=== PATIENT | female | born 1935 | race Caucasian/White ===

== ENCOUNTER → 2016-09-19 | Outpatient (CLI) | payer MEDICARE ==
[~2016-09-19] MED LIST: ALLE10TA PO; AMLO5TAB2 PO; ASPI1TAB91 PO; BETAMETHASONE TOPICAL; CALC600T10 PO; CLAR10CA3 PO; CLON.5 PO; MAGN500T4 PO; MAGNESIUM PO; META28.34 PO; MULT1TAB84 PO; NIAC500T18 PO; TOPR50TA PO; VITA500S3 SL
[2016-09-19 10:08] LABS: BICARBONATE 28.6 MEQ/L (21.0-32.0); MAGNESIUM 2.3 MG/DL (1.5-2.5)
== END ==
LOC: PLAB 08:49
PROVIDERS: ATTEND Family Medicine
DX: R25.2 Cramp and spasm (principal)
CPT/HCPCS: 36415; 80048; 83735

== ENCOUNTER → 2016-12-03 | Outpatient (CLI) | payer MEDICARE ==
[~2016-12-03] MED LIST changes: -CLAR10CA3 PO; -MAGNESIUM PO
[2016-12-03 14:08] LABS: AUTOMATED NEUTROPHIL # 5.2 TH/MM3 (1.8-7.7); BASOPHIL % 0.6 % (0.0-2.0); EOSINOPHIL # 0.1 TH/MM3 (0-0.4); EOSINOPHIL % 0.7 % (0.0-4.0); HEMO FLAGS DIFF FINAL; LYMPH % 24.9 % (9.0-44.0); MEAN CELL VOLUME 96.4 FL (80.0-100.0); MEAN CORPUSCULAR HGB CONC 32.1 % (32.0-36.0); MONO % 9.6 % (0.0-8.0); NEUT % 64.2 % (16.0-70.0); PLATELET COUNT 198 TH/MM3 (150-450); RED BLOOD COUNT 4.25 MIL/MM3 (4.00-5.30); WHITE BLOOD COUNT 8.1 TH/MM3 (4.0-11.0)
[2016-12-03 17:26] LABS: ALT (GPT) 32 U/L (10-53); ANION GAP 5 MEQ/L (5-15); AST (GOT) 24 U/L (15-37); BICARBONATE 30.6 MEQ/L (21.0-32.0); BLOOD UREA NITROGEN 10 MG/DL (7-18); CHLORIDE 104 MEQ/L (98-107); GLOMERULAR FILTRATION RATE 87 ML/MIN (>89); GLUCOSE,FASTING 71 MG/DL (74-99); POTASSIUM 3.7 MEQ/L (3.5-5.1); SODIUM (NA) 140 MEQ/L (136-145)
[2016-12-03 17:28] LABS: ALKALINE PHOSPHATASE 68 U/L (45-117); HDL CHOLESTEROL 66.6 MG/DL (40.0-60.0); LDL CHOLESTEROL 111 MG/DL (0-99); TOTAL BILIRUBIN ADULT 0.4 MG/DL (0.2-1.0)
== END ==
LOC: PLAB 09:14
PROVIDERS: ATTEND Family Medicine
DX: I49.9 Cardiac arrhythmia, unspecified (principal); E78.2 Mixed hyperlipidemia; I10 Essential (primary) hypertension
CPT/HCPCS: 36415; 80053; 80061; 85025

== ENCOUNTER → 2016-12-11 | Outpatient (CLI) | payer MEDICARE ==
[2016-12-11 15:54] LABS: AUTOMATED NEUTROPHIL # 9.9 TH/MM3 (1.8-7.7); BASOPHIL % 0.1 % (0.0-2.0); HEMATOCRIT 40.9 % (35.0-46.0); HEMO FLAGS DIFF FINAL; LYMPH % 11.1 % (9.0-44.0); LYMPHOCYTE # 1.4 TH/MM3 (1.0-4.8); MEAN CELL VOLUME 94.6 FL (80.0-100.0); MEAN CORPUSCULAR HGB CONC 32.8 % (32.0-36.0); NEUT % 80.8 % (16.0-70.0); PLATELET COUNT 309 TH/MM3 (150-450); RED BLOOD COUNT 4.32 MIL/MM3 (4.00-5.30); WHITE BLOOD COUNT 12.3 TH/MM3 (4.0-11.0)
[2016-12-11 16:36] LABS: CREATINE KINASE 90 U/L (26-192)
== END ==
LOC: PLAB 13:59
PROVIDERS: ATTEND Family Medicine
DX: I10 Essential (primary) hypertension (principal); I48.91 Unspecified atrial fibrillation
CPT/HCPCS: 36415; 82550; 84443; 84484; 85025

== ENCOUNTER → 2016-12-18 | Outpatient (CLI) | payer MEDICARE ==
[~2016-12-18] MED LIST changes: +APIX5TAB PO; +FURO20TA PO; +K-TA10TA PO; +METO100T9 PO; +NIAC500T5 PO
== END ==
LOC: PLAB 13:46
PROVIDERS: ATTEND Internal Medicine Interventional Cardiology
DX: I48.91 Unspecified atrial fibrillation (principal); Z79.899 Other long term (current) drug therapy
CPT/HCPCS: 82272

== ENCOUNTER 2016-12-26 20:50 | Emergency (ER) | payer MEDICARE ==
[~2016-12-26] VITALS: Ht 157.5 cm; Wt 66.0 kg
[~2016-12-26 20:50] MED LIST changes: -APIX5TAB PO; -FURO20TA PO; -K-TA10TA PO; -METO100T9 PO; -NIAC500T5 PO
[2016-12-26 21:00] VITALS: BP 143/83; PULSE 106; RESP 12; TEMP 97.6; O2SAT 92
--- NOTE | 2016-12-26 21:24 | PD ---
HPI Chief Complaint: Skin Problem Time Seen by Provider: 21:06 Travel History International Travel<30 days: No Contact w/Intl Traveler<30days: No Traveled to known affect area: No History of Present Illness HPI PATIENT HAS NOTICED BLE SWELLING FOR PAST 2 WEEKS, AND ACCIDENTALLY SCRAPED HER LEFT TIB AREA AGAINST FURNITURE. PER HX STATES JET HANDLER IS DR ALVES, PCP IS DR ROBERTS... PT DENIES ANY SOB AT THIS POINT BUT ELABORATED THAT HER LEGS HAVE BEEN INCREASING IN GIRTH AND NOW HAS WEEPING NATURE TO IT, WEEPING IS CLEAR "LIKE SWEAT" AND NO FOUL SMELL. PFSH Past Medical History Arthritis: Yes Blood Disorders: No Anxiety: No Depression: No Heart Rhythm Problems: Yes Cancer: Yes (melanoma left side of face) Cardiovascular Problems: Yes High Cholesterol: Yes Chemotherapy: No Endocrine: No Gastrointestinal Disorders: No Genitourinary: No Herniated Disk: Yes Hypertension: Yes Immune Disorder: No Implanted Vascular Access Dvce: No Musculoskeletal: Yes Neurologic: No Psychiatric: No Reproductive: No Respiratory: Yes Radiation Therapy: No PNEUMOCCOCAL Vaccine (Year): 1 Past Surgical History Gynecologic Surgery: Yes (ECTOPIC , C SECTION) Joint Replacement: Yes (LEFT HIP) Pacemaker: No Other Surgery: Yes Social History Alcohol Use: Yes (couple glasses of wine occ) Tobacco Use: No Substance Use: No Allergies-Medications (Allergen,Severity, Reaction): Coded Allergies: Codeine (Verified Allergy, Severe, NV, 12/09/16) Darvocet-N 100 (Unverified Allergy, Severe, n/v, 12/09/16) Darvon (Unverified Allergy, Severe, n/v, 12/09/16) Duragesic (Unverified Allergy, Severe, n/v, 12/09/16) Demerol (Unverified Adverse Reaction, Severe, VOMITING, 12/09/16) Tramadol (Unverified Adverse Reaction, Severe, VOMITING, 12/09/16) Vicodin (Unverified Adverse Reaction, Severe, VOMITING, 12/09/16) Uncoded Allergies: CODEINE (Adverse Reaction, Severe, VOMITING, 09/30/11) Reported Meds & Prescriptions Reported Meds & Active Scripts Active Reported K-Tab (Potassium Chloride) 10 Meq Tab 10 Meq PO DAILY Furosemide 20 Mg Tab 20 Mg PO DAILY Eliquis (Apixaban) 5 Mg Tab 5 Mg PO BID Niacin 500 Mg Tab 500 Mg PO DAILY Metoprolol Succinate ER 24 HR (Metoprolol Succinate) 100 Mg Tab 100 Mg PO DAILY Allergy Relief (Loratadine) 10 Mg Tab 10 Mg PO BID [Bethamathezone] 1 Applic TOPICAL DIRECTED Metamucil Smooth Texture (Psyllium Hydrophilic Mucilloid) 28.3 % Pow 1 Scoop PO BID PRN 1 rounded TEASPOON in 8 oz of liquid at the first sign of irregularity. Vitamin B-12 (Cyanocobalamin) 500 Mcg Subl 500 Mcg SL DAILY Klonopin (Clonazepam) 0.5 Mg Tab 0.5 Mg PO HS Review of Systems Except as stated in HPI: all other systems reviewed are Neg Cardiovascular: Positive: Palpitations, Irregular Rhythm, Edema Physical Exam Narrative GENERAL: SKIN: Warm and dry. HEAD: Atraumatic. Normocephalic. EYES: Pupils equal and round. No scleral icterus. No injection or drainage. ENT: No nasal bleeding or discharge. Mucous membranes pink and moist. NECK: Trachea midline. No JVD. CARDIOVASCULAR: Regular rate and rhythm. RESPIRATORY: No accessory muscle use. Clear to auscultation. Breath sounds equal bilaterally. GASTROINTESTINAL: Abdomen soft, non-tender, nondistended. Hepatic and splenic margins not palpable. MUSCULOSKELETAL: Extremities without clubbing, cyanosis, 1+ ble EDEMA PITTING WITHOUT ANY CELLULITIC CHANGES.... No obvious deformities. NEUROLOGICAL: Awake and alert. No obvious cranial nerve deficits. Motor grossly within normal limits. Five out of 5 muscle strength in the arms and legs. Normal speech. PSYCHIATRIC: Appropriate mood and affect; insight and judgment normal. Data Data Last Documented VS Vital Signs Date Time Temp Pulse Resp B/P Pulse Ox O2 Delivery O2 Flow Rate FiO2 12/26/16 21:10 83 16 91 Room Air 12/26/16 21:00 97.6 143/83 Orders Complete Blood Count With Diff (12/26/16 21:18) Comprehensive Metabolic Panel (12/26/16 21:18) Ckmb (Isoenzyme) Profile (12/26/16 21:18) Troponin I (12/26/16 21:18) B-Type Natriuretic Peptide (12/26/16 21:18) Prothrombin Time / Inr (Pt) (12/26/16 21:18) Act Partial Throm Time (Ptt) (12/26/16 21:18) Lipase (12/26/16 21:18) Thyroid Stimulating Hormone (12/26/16 21:18) Us Leg Venous Doppler Bilat (12/26/16 ) Furosemide Inj (Lasix Inj) (12/26/16 21:30) CKMB (12/26/16 21:35) CKMB% (12/26/16 21:35) Electrocardiogram (12/26/16 21:45) Labs Laboratory Tests Test 12/26/16 21:35 White Blood Count 9.5 TH/MM3 Red Blood Count 3.91 MIL/MM3 Hemoglobin 12.5 GM/DL Hematocrit 36.0 % Mean Corpuscular Volume 92.2 FL Mean Corpuscular Hemoglobin 32.0 PG Mean Corpuscular Hemoglobin 34.7 % Concent Red Cell Distribution Width 13.4 % Platelet Count 214 TH/MM3 Mean Platelet Volume 7.6 FL Neutrophils (%) (Auto) 71.1 % Lymphocytes (%) (Auto) 17.6 % Monocytes (%) (Auto) 10.3 % Eosinophils (%) (Auto) 0.8 % Basophils (%) (Auto) 0.2 % Neutrophils # (Auto) 6.7 TH/MM3 Lymphocytes # (Auto) 1.7 TH/MM3 Monocytes # (Auto) 1.0 TH/MM3 Eosinophils # (Auto) 0.1 TH/MM3 Basophils # (Auto) 0.0 TH/MM3 CBC Comment DIFF FINAL Differential Comment Prothrombin Time 11.9 SEC Prothromb Time International 1.1 RATIO Ratio Activated Partial 34.2 SEC Thromboplast Time Sodium Level 129 MEQ/L Potassium Level 3.7 MEQ/L Chloride Level 96 MEQ/L Carbon Dioxide Level 25.1 MEQ/L Anion Gap 8 MEQ/L Blood Urea Nitrogen 11 MG/DL Creatinine 0.65 MG/DL Estimat Glomerular Filtration 87 ML/MIN Rate Random Glucose 96 MG/DL Calcium Level 8.5 MG/DL Total Bilirubin 0.5 MG/DL Aspartate Amino Transf 31 U/L (AST/SGOT) Alanine Aminotransferase 55 U/L (ALT/SGPT) Alkaline Phosphatase 75 U/L Total Creatine Kinase 106 U/L Creatine Kinase MB 3.0 NG/ML Troponin I LESS THAN 0.02 NG/ML B-Type Natriuretic Peptide 441 PG/ML Total Protein 6.9 GM/DL Albumin 3.5 GM/DL Lipase 136 U/L Thyroid Stimulating Hormone 1.270 uIU/ML 3rd Gen [facility] Medical Decision Making Medical Screen Exam Complete: Yes Emergency Medical Condition: Yes Medical Record Reviewed: Yes Interpretation(s) AFIB WITH MILD RVR 120'S, NO STEMI PATTERN, Differential Diagnosis LIVER V RENAL FAILURE V CHF V DVT V PERIPHERAL EDEMA Narrative Course PATIENT VSS, [place] ON BOARD AND IT TURNS OUT PATIENT WAS JUST STARTED ON LASIX, PT TOOK FIRST PILL THIS AM BUT DIDN'T RECALL. PT DIURESED WELL AFTER LASIX IV. PT RESPIRATORY STATUS IS STABLE, NO TACHYPNEA, NL PULSE OX, AND NO E/ O RESP DISTRESS AT THIS TIME. Diagnosis Primary Impression: PERIPHERAL EDEMA BILATERAL Disposition: 01 DISCHARGE HOME Condition: Stable Austin Moreno MD Dec 26, 2016 21:24
[2016-12-26] MEDS ORDERED: FUROSEMIDE 20 MG/2 ML VIAL IV PUSH ONE ×2 (21:30→23:00)
[2016-12-26 21:53] LABS: AUTOMATED NEUTROPHIL # 6.7 TH/MM3 (1.8-7.7); BASOPHIL % 0.2 % (0.0-2.0); EOSINOPHIL # 0.1 TH/MM3 (0-0.4); EOSINOPHIL % 0.8 % (0.0-4.0); HEMO FLAGS DIFF FINAL; LYMPH % 17.6 % (9.0-44.0); LYMPHOCYTE # 1.7 TH/MM3 (1.0-4.8); MEAN CELL VOLUME 92.2 FL (80.0-100.0); MEAN CORPUSCULAR HGB CONC 34.7 % (32.0-36.0); MONO % 10.3 % (0.0-8.0); NEUT % 71.1 % (16.0-70.0); PLATELET COUNT 214 TH/MM3 (150-450); RED BLOOD COUNT 3.91 MIL/MM3 (4.00-5.30); RED CELL DISTRIBUTION WIDTH 13.4 % (11.6-17.2); WHITE BLOOD COUNT 9.5 TH/MM3 (4.0-11.0)
[2016-12-26 22:00] LABS: CHLORIDE 96 MEQ/L (98-107); POTASSIUM 3.7 MEQ/L (3.5-5.1); SODIUM (NA) 129 MEQ/L (136-145)
[2016-12-26 22:04] LABS: ANION GAP 8 MEQ/L (5-15); BICARBONATE 25.1 MEQ/L (21.0-32.0)
[2016-12-26 22:05] LABS: BLOOD UREA NITROGEN 11 MG/DL (7-18)
[2016-12-26 22:07] LABS: ALT (GPT) 55 U/L (10-53); AST (GOT) 31 U/L (15-37); GLOMERULAR FILTRATION RATE 87 ML/MIN (>89)
[2016-12-26 22:09] LABS: TOTAL BILIRUBIN ADULT 0.5 MG/DL (0.2-1.0)
[2016-12-26 22:10] VITALS: BP 141/83; PULSE 83; RESP 12; O2SAT 91
[2016-12-26 22:10] LABS: ALKALINE PHOSPHATASE 75 U/L (45-117); CREATINE KINASE 106 U/L (26-192)
[2016-12-26 22:20] LABS: APTT (PATIENT) 34.2 SEC (24.3-30.1); INTERNATIONAL NORMALIZED RATIO 1.1 RATIO; PROTHROMBIN TIME - PATIENT 11.9 SEC (9.8-11.6)
--- NOTE | 2016-12-26 22:34 | RADRPT ---
EXAM DATE/TIME: 12/26/2016 22:09 [place] COMPARISON: No previous studies available for comparison. INDICATIONS : Bilateral leg swelling. MEDICAL HISTORY : Congestive heart failure. Hypercholesterolemia. Hypertension. A-fib. SURGICAL HISTORY : section. Left hip replacement. ENCOUNTER: Initial ACUITY: 3 days PAIN SCORE: 3/10 LOCATION: Bilateral legs. TECHNIQUE: Venous ultrasound of the left and right leg was performed from the inguinal ligament to the proximal calf. Real-time, color Doppler and spectral tracing, compression and augmentation techniques were us ed. FINDINGS: RIGHT LEG: There is normal compressibility of the deep venous system from the inguinal region to the proximal ca lf. No echogenic clot is seen in the lumen of the common femoral, femoral, popliteal, and posterior tibial veins. There is a normal response of the venous system to proximal and distal augmentation an d respiration. LEFT LEG: There is normal compressibility of the deep venous system from the inguinal region to the proximal ca lf. No echogenic clot is seen in the lumen of the common femoral, femoral, popliteal, and posterior tibial veins. There is a normal response of the venous system to proximal and distal augmentation an d respiration. CONCLUSION: Negative for deep venous thrombosis. . Cale Castrejon MD FACR on December 26, 2016 at 22:31 Board Certified Radiologist. This report was verified electronically.
[2016-12-26] MEDS ORDERED: FURO20TA PO (22:42)
[2016-12-26] MEDS ORDERED: NIAC500T5 PO (22:42)
[2016-12-26] MEDS ORDERED: METO100T9 PO (22:42)
[2016-12-26] MEDS ORDERED: APIX5TAB PO (22:42)
[2016-12-26] MEDS ORDERED: K-TA10TA PO (22:42)
[2016-12-26 23:15] VITALS: BP 133/77; PULSE 80; RESP 12; O2SAT 93
--- NOTE | 2016-12-27 16:11 | EKG ---
Date Performed: 12/26/2016 Time Performed: 21:45:23 PTAGE: 81 years EKG: ATRIAL FIBRILLATION WITH RAPID VENTRICULAR RESPONSE ABNORMAL RHYTHM ECG PREVIOUS TRACING : 03/07/2015 16.19 Compared to the previous tracing, previously Sinus rhythm DOCTOR: Elian Gomez Interpretating Date/Time 12/27/2016 16:10:00
== END 2016-12-26 23:48 | disposition home or self-care (01) ==
LOC: PHED 20:50
DX: R60.0 Localized edema (principal); Z79.01 Long term (current) use of anticoagulants; Z85.820 Personal history of malignant melanoma of skin; E78.00 Pure hypercholesterolemia, unspecified; I10 Essential (primary) hypertension; I48.91 Unspecified atrial fibrillation
CPT/HCPCS: 80053; 82550; 82552; 83690; 83880; 84443; 84484; 85025; 85610; 85730; 93005; 93970; 96374; 96376; 99285; J1940

== ENCOUNTER → 2017-05-05 | Outpatient (CLI) | payer MEDICARE ==
[~2017-05-05] MED LIST changes: -ALLE10TA PO; -AMLO5TAB2 PO; +APIX5TAB PO; -ASPI1TAB91 PO; -CALC600T10 PO; +FURO20TA PO; +K-TA10TA PO; +LORA-650 PO; -MAGN500T4 PO; +METO1TAB43 PO; -MULT1TAB84 PO; -NIAC500T18 PO; +NIAC500T5 PO; -TOPR50TA PO
[2017-05-05 13:12] LABS: BASOPHIL % 0.5 % (0.0-2.0); EOSINOPHIL # 0.1 TH/MM3 (0-0.4); EOSINOPHIL % 0.8 % (0.0-4.0); HEMATOCRIT 38.5 % (35.0-46.0); HEMO FLAGS DIFF FINAL; LYMPH % 24.5 % (9.0-44.0); LYMPHOCYTE # 1.5 TH/MM3 (1.0-4.8); MEAN CELL VOLUME 92.9 FL (80.0-100.0); MEAN CORPUSCULAR HEMOGLOBIN 30.6 PG (27.0-34.0); MEAN CORPUSCULAR HGB CONC 32.9 % (32.0-36.0); MONO % 10.5 % (0.0-8.0); NEUT % 63.7 % (16.0-70.0); PLATELET COUNT 219 TH/MM3 (150-450); RED BLOOD COUNT 4.15 MIL/MM3 (4.00-5.30); RED CELL DISTRIBUTION WIDTH 14.3 % (11.6-17.2); WHITE BLOOD COUNT 6.3 TH/MM3 (4.0-11.0)
[2017-05-05 13:37] LABS: BICARBONATE 29.4 MEQ/L (21.0-32.0); POTASSIUM 3.6 MEQ/L (3.5-5.1)
== END ==
LOC: PLAB 09:10
PROVIDERS: ATTEND Internal Medicine Interventional Cardiology
DX: I48.91 Unspecified atrial fibrillation (principal); I11.9 Hypertensive heart disease without heart failure; Z79.01 Long term (current) use of anticoagulants
CPT/HCPCS: 36415; 80048; 85025

== ENCOUNTER 2017-07-01 13:59 | Day surgery (SDC) | payer MEDICARE ==
[~2017-07-01] VITALS: Ht 157.5 cm; Wt 58.7 kg
[2017-07-01] MEDS ORDERED: LACTATED RINGER'S 1000 ML IV PRN (14:30)
[2017-07-01] MEDS ORDERED: CHLORHEXIDINE GLUCONATE 2 % 1 PACK (2 CLOTHS) TOPICAL PRN (14:30)
[2017-07-01] MEDS ORDERED: METOPROLOL TARTRATE 25 MG TAB PO PRN (14:30)
[2017-07-01] MEDS ORDERED: SODIUM CHLORID 0.9% 500 ML IV PRN (14:30)
[2017-07-01] MEDS ORDERED: POVIDONE IODINE 5% (ANTISEPSIS KIT) 4 APPLICATIONS EACH NARE PRN (14:30)
[2017-07-01] MEDS ORDERED: LORazepam 1 MG TAB SL SCH (14:30)
[2017-07-01 14:45] VITALS: BP 162/98; PULSE 133; RESP 18; TEMP 98.1; O2SAT 95
[2017-07-01] MEDS ORDERED: AMIO200T PO (14:58)
[2017-07-01] MEDS ORDERED: XOPEAER4 INH (14:58)
[2017-07-01] MEDS ORDERED: BETA0.1C TOPICAL (14:58)
[2017-07-01] MEDS ORDERED: CART120C PO (14:58)
[2017-07-01] MEDS ORDERED: CLON.5 PO (14:58)
[2017-07-01] MEDS ORDERED: SODIUM CHLORID 0.9% 500 ML INJ 500 ML IV SCH (15:00)
[2017-07-01 15:18] LABS: AUTOMATED NEUTROPHIL # 4.1 TH/MM3 (1.8-7.7); BASOPHIL % 0.5 % (0.0-2.0); EOSINOPHIL # 0.1 TH/MM3 (0-0.4); HEMATOCRIT 39.8 % (35.0-46.0); HEMOGLOBIN 13.4 GM/DL (11.6-15.3); LYMPH % 29.6 % (9.0-44.0); LYMPHOCYTE # 2.1 TH/MM3 (1.0-4.8); MEAN CELL VOLUME 92.3 FL (80.0-100.0); MEAN CORPUSCULAR HEMOGLOBIN 31.1 PG (27.0-34.0); MEAN CORPUSCULAR HGB CONC 33.7 % (32.0-36.0); MEAN PLATELET VOLUME 7.7 FL (7.0-11.0); MONO % 9.8 % (0.0-8.0); MONOCYTE # 0.7 TH/MM3 (0-0.9); NEUT % 59.1 % (16.0-70.0); PLATELET COUNT 301 TH/MM3 (150-450); RED BLOOD COUNT 4.32 MIL/MM3 (4.00-5.30)
[2017-07-01 15:31] LABS: CALCIUM 9.2 MG/DL (8.5-10.1); CREATININE 0.77 MG/DL (0.50-1.00)
[2017-07-01 15:34] LABS: INTERNATIONAL NORMALIZED RATIO 1.1 RATIO; PROTHROMBIN TIME - PATIENT 10.9 SEC (9.8-11.6)
[2017-07-01] MEDS ORDERED: LEVOFLOXACIN 500 MG PREMIX INJ 100 ML IV ONE (16:00)
[2017-07-01] MEDS ORDERED: HEPARIN-NS/PF INJ 2,000 ML ONE (16:07)
[2017-07-01] MEDS ORDERED: HEPARIN-NS/PF INJ 500 ML ONE (16:59)
[2017-07-01] MEDS ORDERED: HEPARIN SODIUM - IV 10,000 UNITS/10 ML VIAL ONE (16:59)
[2017-07-01] MEDS ORDERED: PROTAMINE SULFATE 50 MG/5 ML VIAL ONE (16:59)
[2017-07-01] MEDS ORDERED: ISOPROTERENOL HCL 1 MG/5 ML AMP ONE (17:00)
[2017-07-01] MEDS ORDERED: HEPARIN-D5W 25,000 U/250 ML 250 ML ONE (17:07)
[2017-07-01] MEDS ORDERED: SUGAMMADEX SODIUM 200 MG/2 ML VIAL IV PUSH ONE (18:30)
[2017-07-01] MEDS ORDERED: SODIUM CHLOR 0.9% 250 ML INJ 250 ML IV PRN (18:45)
[2017-07-01] MEDS ORDERED: ATROPINE SULFATE 1 MG/ML VIAL IV PUSH PRN (18:45)
[2017-07-01] MEDS ORDERED: LORazepam 2 MG/ML VIAL IV PUSH PRN (18:45)
[2017-07-01] MEDS ORDERED: BACITRACIN OINT 0.9 GM PKT TOP ONE (18:45)
[2017-07-01] MEDS ORDERED: oxyCODONE/ACETAMINOPHEN 5 MG/325 MG TAB PO PRN ×2 (18:45)
[2017-07-01] MEDS ORDERED: ONDANSETRON HCL 4 MG/2 ML VIAL IV PUSH PRN (18:45)
[2017-07-01] MEDS ORDERED: LIDOCAINE HCL 1% 50 ML VIAL INFIL PRN (18:45)
[2017-07-01] MEDS ORDERED: FUROSEMIDE 40 MG/4 ML VIAL ONE (19:02)
--- NOTE | 2017-07-01 19:25 | CATHPROC ---
[facility] HIS Report Study Information Study Number Admission Scheduled Start Study Start [id number] Jul 01 2017 1:59PM 07/01/2017 Jul 01 2017 3:29PM [place] [facility] Electrophysiology Study Admit Source Facility Department Other [facility] - Waiter/Waitress Economy Class Physician and Clinical Staff Initial Yung Bullock Instructional Support Specialist Sridhar Luna,RT(R) Instructional Support Specialist Terri Ramirez RCIS TECH2 Other Anesthesia, SLD INCLUSION TEACHER Recorder Leticia De Los Santos,CARMELA Recorder Lina Valdez,CARMELA Scrub Martita Burns,ACCOUNTS EXECUTIVE TECH2 Procedures Performed Procedure Location (Site) Vessel Name Ablation Procedure Cardioversion ICE CATHETER INSERT RA Atruim RF Ablation LT. ATRIUM LT. ATRIUM Equipment Time Comfort Advisor Description Size Mfg Part Number Used/Scraped NEEDLE, TRANSSEPTAL NRG 98 [id number] 16:09 ENTERPRISEOluKai Browsarity Used C1 *[id number] [employer]/ EP [id number] 16:09 KIT, TRANSDUCER / AFIB Used PACER *[id number] CATHETER, TACTICATH ABLAT BUNDLE 16:09 BUNDLE-[employer] Used 65 BUNDLE *[id number] BUNDLE [id number] CATHETER, FR7 OPTIMA SPIRAL 16:09 BUNDLE-[employer] FR7 *[id number]- Used BUNDLE BUNDLE [id number] 16:09 BUND[employer] CATHETER, JSN, QUAD BUNDLE FR 5 *[id number]- Used BUNDLE [id number] 16:09 BUND[employer] CATHETER, JSN, QUAD BUNDLE FR 5 *[id number]- Used BUNDLE [id number] SET, COOL POINT TUBING 16:09 BUNDLE-[employer] *[id number]- Used BUNDLE BUNDLE SHEATH, FR8.5 STEERABLE SM 16:09 BUNDLE-[employer] 71CM [id number] Used 71CM BUNDLE COVER, TRANSDUCER CABLE 612-113 16:09 [employer] Used ACUNAV *[id number] 16:09 CORDIS/PACER SHEATH, FR10 BRETT 11CM FR 10 Used *[id number] 16:09 CORDIS/PACER SHEATH, FR9 BRETT 11CM FR 9 [id number] Used [id number] 16:09 [employer] PACK, CCL CUSTOM * Used *[id number] 16:09 MEDLINE PACER HULL, LIMB * 2530 *[id number] Used [id number] 16:09 [facility] MEDICAL SHEATH, FR4.5 PRELUDE 11CM FR 4.5 Used [id number] 16:09 NAMIC TUBING, HIGH PRESSURE 48" 48" Used *[id number] 16:09 NAMIC TUBING, HIGH PRESSURE 48" 48" Used *[id number] 16:09 [facility] BLANKET,WARM AIR CCL * Used *[id number] 16:09 [employer] MEDICAL ELECTRODE KIT, YASSINE X SURFACE * Used *[id number] 16:09 [employer] MEDICAL SHEATH, EPS, FR6 FAST CATH FR 6 Used *[id number] 16:09 [employer] MEDICAL SHEATH, EPS, FR7 FAST CATH FR 7 [id number] Used [id number] 16:09 [employer] MEDICAL SHEATH, EPS, FR8 FAST CATH FR 8 Used *[id number] CATHETER, ACUNAV FR10 ICE [id number] 17:28 VALDEMAR FR 10 Used (VALDEMAR) *[id number] [facility] PAD, ELECTROSURGICAL 16:09 * [id number] *[id number] Used SURGICAL GROUNDING (BLUE) History: Allergies Allergy Reaction CODEINE VOMITING Darvocet-N 100 n/v Darvon n/v Demerol VOMITING Duragesic n/v tramadol VOMITING Vicodin VOMITING hydrocodone VOMITING propoxyphene n/v acetaminophen VOMITING fentanyl n/v meperidine VOMITING carisoprodol Nausea/Vomiting Labs Hgb (g/dl) Hct (%) RBC (MIL/MM3) WBC (l/cumm) Platelets (thousands) 11.60-17.00 35.00-51.00 4.00-5.90 4.00-11.00 150.00-450.00 13.0 39 4.3 7 301 Glucose (mg/dl) BUN (mg/dl) Creatinine (mg/dl) BUN:Creatinine (1:x) 74.00-106.00 7.00-18.00 0.50-1.30 10.00-20.00 88 11 0.7 15.7 Na (meq/l) K (meq/l) 136.00-145.00 3.50-5.10 139 3.6 INR (PTT:PT) 0.90-1.10 1.1 Medication Medication Total Dose (Bolus/Oral) Medication Total Dosage/Unit 1% XYLOCAINE 40 mL HEPARIN 47375 units PROTAMINE 40 mg Medications (Bolus/Oral) Medication Time Given Dosage/Unit Administered By Reason 1% XYLOCAINE 07/01/2017 5:17:00 PM 20 mL Yung Nichole 20 mL 1% XYLOCAINE given in lab by Yung Nichole in Left Groin via Subcutaneous. 1% XYLOCAINE 07/01/2017 5:21:42 PM 20 mL Yung Nichole 20 mL 1% XYLOCAINE given in lab by Yung Nichole in Right Groin via Subcutaneous. HEPARIN 07/01/2017 5:30:01 PM 22293 units Anesthesia, SLD INCLUSION TEACHER As per physicians v erbal order 42045 units HEPARIN given in lab by Anesthesia, SLD INCLUSION TEACHER via Peripheral IV. Ordered by Yung Nichole. Mercedes son: As per physicians verbal order. PROTAMINE 07/01/2017 6:35:39 PM 40 mg Anesthesia, SLD INCLUSION TEACHER As per physicians vidhya bal order 40 mg PROTAMINE given in lab by Anesthesia, SLD INCLUSION TEACHER via Peripheral IV. Ordered by Yung Nichole. Reason: As per physicians verbal order. Medication (Drip) Medication Time Given Dosage/Unit Concentration/Unit Diluent (ml) Solution HEPARIN DRIP 07/01/2017 5:44:30 PM 1000 units/hr 72935 units 250 NaCl .9 1000 units/hr HEPARIN DRIP given in lab by Anesthesia, SLD INCLUSION TEACHER via Peripheral IV. Pump/Drip Flow = 10 ml /hr using NaCl .9 [place] [address] units in 250 ml. Ordered by Yung Nichole. Initial Case Assessment Cardiovascular HR Rhythm NIBP Chest Pain 125 af 187/94 0 Edema Present Skin color Skin None Normal Warm Circulatory - Right Pulses Dorsalis Pedis 2 Scale (0,1,2,3,4,d) Circulatory - Left Pulses Dorsalis Pedis 1 Scale (0,1,2,3,4,d) Circulatory - Lower Extremities Color Lower Right Color Lower Left Normal Normal Neurological State Oriented to time-place- Alert Moves all extremities person Respiration - General Respiration Rate SpO2 (%) (B/min) 20 97 Final Case Assessment Cardiovascular HR NIBP 76 114/59 Edema Present Skin color Skin None Normal Warm Dry Neurological State Lethargic Respiration - General SpO2 (%) O2 (lpm) 99 4 Chronological Log Time Study Chronological Log 16:04:06 Patient arrived via Bed. 16:04:06 Patient Name, D.O.B, / Armband Verified By R.N. 16:04:07 Consent signed by the physician and the patient and verified by the Waiter/Waitress Economy Class staff. 16:04:08 Pre-op and post- op instructions given; patient acknowledges understanding of instructions. 16:04:11 Verbal Stimulation=2 Physical Stimulation=2 Airway=2 Respiration=2 TOTAL=8. (0=absent, 1=li mited, 2=present) 16:09:42 Patient has been NPO for More than 6Hrs. 16:09:54 Skin Breakdown- right hand knuckle with scab. 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 16:10:07 Patient Warmer Placed on the Table. 16:10:09 Disposable Defibrillator Pads Placed On Patient. 16:10:10 Lazaro Prominences Protected 16:10:11 A # 20 IV was noted in the Antecubital (left). Grade = 0 0.9ns kvo 16:10:21 A # 20 IV was noted in the Antecubital (right). Grade = 0 0.9ns kvo 16:10:31 History and physical on the chart. Assessment: Initial Case, JX=359 BPM, Rhythm=af, JQLK=857/94 mmhg, Chest Pain=0, Edema=None, Co leonard=Normal, Skin = Warm Right Pulses: Landon Ped=2 Left Pulses: Landon Ped=1 16:26:05 Lower Right Extremities: Color=Normal Lower Left Extremities: Color=Normal Neurological: State=Alert, Ox3, GEORGE Respiration: Resp=20 B/min, SpO2=97 % 16:26:07 Table restraints applied according to hospital policy 16:27:34 Bilateral groins prepped with 2% chlorhexidine, and draped after a 3 minute waiting time. 16:32:28 Reference ECG taken 16:40:50 Anesthesia at bedside. Assumes care of patient. Dina 16:51:35 Anesthesilogist present for intubation. 16:55:03 MD paged 17:07:44 MD arrived. Time Out. Correct patient, procedure, procedure equipment, site and side verified with physicia n present. Time 17:12:00 concurred by MD, individual staff and SLD INCLUSION TEACHER. Time Out #2 - Consents verified, patient in correct position, all results are labled and displa yed, safety precautions 17:12:15 taken, antibiotics administered. Time out concurred by MD, individual staff and SLD INCLUSION TEACHER in procedu re 17:12:30 Case Start 17:12:32 German in progress. 17:15:12 German complete 17:17:00 20 mL 1% XYLOCAINE given in lab by Yung Nichole in Left Groin via Subcutaneous. 17:18:07 Vascular access was obtained in the Fem Vein (left). 17:18:09 Vascular access was obtained in the Fem Vein (left). 17:18:14 Vascular access was obtained in the Fem Vein (left). 17:18:27 Vascular access was obtained in the Fem Art (left). A SHEATH, FR4.5 PRELUDE 11CM FR 4.5 was advanced into the Fem Art (left) using the Modified Fatou zuleyma technique. 17:18:38 0.9ns pressure bag connected. 17:19:31 A SHEATH, EPS, FR6 FAST CATH FR 6 was advanced into the Fem Vein (left) using the Modified Seldinger technique. 17:19:45 A SHEATH, EPS, FR7 FAST CATH FR 7 was advanced into the Fem Vein (left) using the Modified Seldinger technique. 17:19:53 A SHEATH, FR10 BRETT 11CM FR 10 was advanced into the Fem Vein (left) using the Modified S eldinger technique. 17:21:42 20 mL 1% XYLOCAINE given in lab by Yung Nichole in Right Groin via Subcutaneous. 17:22:02 Vascular access was obtained in the Fem Vein (right). 17:22:07 A SHEATH, EPS, FR8 FAST CATH FR 8 was advanced into the Fem Vein (right) using the Modified Seldinger technique. A CATHETER, JSN, QUAD BUNDLE FR 5 was advanced vis Fem Vein (left) and placed in the CS. Placem ent was visually 17:23:27 confirmed under fluoroscopy. 17:24:29 Beginning of case Body Temp 36.3. A CATHETER, JSN, QUAD BUNDLE FR 5 was advanced vis Fem Vein (left) and placed in the HIS. Place ment was 17:25:39 visually confirmed under fluoroscopy. 17:27:49 CATHETER, ACUNAV FR10 ICE (VALDEMAR) FR 10 Was Postioned. 50902 units HEPARIN given in lab by Anesthesia, SLD INCLUSION TEACHER via Peripheral IV. Ordered by Junie Nichole Reason: As per 17:30:01 physicians verbal order. A SHEATH, FR8.5 STEERABLE SM 71CM BUNDLE 71CM was exchanged in the Fem Vein (right). This was n ecessary in 17:31:00 order for catheter support. 17:31:11 [place] in 17:32:23 A eps was advanced to the right atrium and passed through the septal wall to the left atriu m. 17:32:34 [place] out A CATHETER, FR7 OPTIMA SPIRAL BUNDLE FR7 was advanced vis Fem Vein (right) and placed in the LA . Placement 17:33:25 was visually confirmed under fluoroscopy. Mapping in progress. 17:36:02 Activated Clotting Time Drawn 17:40:03 Ablation complete. Catheter was removed A CATHETER, TACTICATH ABLAT 65 BUNDLE was advanced vis Fem Vein (right) and placed in the LA. P lacement was 17:40:16 visually confirmed under fluoroscopy. 17:44:19 ACT (Normal Range 90-180) = 353 1000 units/hr HEPARIN DRIP given in lab by Anesthesia, SLD INCLUSION TEACHER via Peripheral IV. Pump/Drip Flow = 10 ml/hr using NaCl 17:44:30 .9 [place] [address] units in 250 ml. Ordered by Yung Nichole. 17:46:44 RF Ablation of the LT. ATRIUM with a CATHETER, TACTICATH ABLAT 65 BUNDLE. 18:04:32 Activated Clotting Time Drawn 18:11:00 ACT (Normal Range 90-180) = 389 18:20:27 Ablation stopped. 18:20:32 ECG rhythm of AF noted. Patient cardioverted at 200 joules. Success synch 18:21:00 Monitor SR. 18:32:01 All Cathetera removed. A SHEATH, FR9 BRETT 11CM FR 9 was exchanged in the Fem Vein (right). This was necessary in ord er to minimize 18:33:00 site leakage. 18:33:56 Heparin off. 40 mg PROTAMINE given in lab by Anesthesia, SLD INCLUSION TEACHER via Peripheral IV. Ordered by Yung Nichole. R rory: As per 18:35:39 physicians verbal order. 18:37:57 PACU called. Spoke to Niko. 18:38:53 Bedside Report will be given. 18:38:58 Ablation procedure performed: AFIB. 18:39:03 EP Procedure was performed. 18:43:52 ACT (Normal Range 90-180) = 173 4fr right femoral artery removed and pressure held by Leticia 18:45:12 18:54:19 Sheaths removed; pressure applied to access site. 6,7, and 10fr lfv removed and held pressu re by Leticia 19:16:32 Case End 19:16:54 Sterile dressing applied to site 19:16:56 No case complications noted. Assessment: Final Case, HR=76 BPM, ZXZL=029/59 mmhg, Edema=None, Color=Normal, Skin = Warm, Dr frost 19:19:07 Neurological: State=Lethargic Respiration: SpO2=99 %, O2=4 lpm 19:23:59 [facility] - Contrast Media Used In Study Contrast Total Opened (mL) Total Used (mL) Total Wasted (mL) Unspecified 0 0 0 End Study - Maximum Contrast Load Max Contrast Load (mL) 428.6 End Study - Radiation Exposure Fluoro Time (minutes) 2.9 End Study - Patient Disposition Complications Transferred To Interventional Outcome No Telemetry Bed successful
[2017-07-01] MEDS ORDERED: DO NOT ADM ANY ANTICOAGULANT DRUGS PRN (19:31)
[2017-07-01 21:00] VITALS: BP 142/60; PULSE 84; RESP 18; TEMP 98.5; O2SAT 96
[2017-07-01] MEDS ORDERED: clonazePAM 0.5 MG TAB PO SCH (21:00)
[2017-07-01] MEDS: APIXABAN 5 MG TABLET PO SCH (21:36)
[2017-07-01] MEDS ORDERED: LEVALBUTEROL INH SCH (22:00)
[2017-07-02] VITALS (11 sets, daily range): BP systolic 118–127; BP diastolic 49–80; PULSE 82–102; RESP 16–18; TEMP 97.5–98.4; O2SAT 95–97
[2017-07-02] MEDS ORDERED: ACETAMINOPHEN 325 MG TAB PO PRN (02:00)
[2017-07-02] MEDS: APIXABAN 5 MG TABLET PO SCH (08:23)
[2017-07-02] MEDS ORDERED: AMIODARONE 200 MG TAB PO SCH (09:00)
[2017-07-02] MEDS ORDERED: METOPROLOL SUCCINATE 50 MG EXTENDED RELEASE TAB PO SCH (09:00)
[2017-07-02] MEDS ORDERED: POTASSIUM CHLORIDE 10 MEQ CONTROLLED RELEASE TAB PO SCH (09:00)
[2017-07-02] MEDS ORDERED: NIACIN 500 MG EXTENDED RELEASE TAB PO SCH (09:00)
[2017-07-02] MEDS ORDERED: FUROSEMIDE 20 MG TAB PO SCH (09:00)
[2017-07-02 09:01] LABS: INTERNATIONAL NORMALIZED RATIO 1.1 RATIO; PROTHROMBIN TIME - PATIENT 11.4 SEC (9.8-11.6)
--- NOTE | 2017-07-02 13:28 | PD.CARD ---
Atrial Fibrillation Ablation PROCEDURE DATE: Jul 01, 2017 PROCEDURES PERFORMED: 1. Electrophysiology study on Isuprel infusion 2. CS cannulation 3. 3-D mapping 4. Transseptal approach 5. Right and left heart catheterization 6. Intracardiac echo 7. Radiofrequency ablation of atrial fibrillation 8. Pulmonary vein isolation 9. Posterior wall ablation 10. Mitral valve isolation 11. Mitral line creation 13. Roof line creation 14. Floor line creation 15. Anterior wall ablation 16. Cardioversion INDICATIONS FOR THE PROCEDURE Ms. Ybarra is a 82-year-old female with atrial fibrillation, very symptomatic, on multiple medications, admitted for electrophysiology study and ablation. The risks, the nature and the benefits of the procedure were clearly stated to her. The risks include pneumothorax, cardiac perforation, stroke, need for open heart surgery and even . The patient understood and agreed to proceed. DESCRIPTION OF THE PROCEDURE IN DETAIL As written informed consent was obtained prior to esophageal echocardiogram, the patient was kept on the table where she was prepped and draped in the usual sterile fashion. Conscious sedation was initiated and maintained throughout the procedure by the anesthesiologist. Once sedation was verified, the right and left inguinal areas were anesthetized with 2% Xylocaine. Using modified Seldinger technique, the left femoral vein was cannulated on three occasions, three guidewires were advanced. Over the wire a 6, 7 and a 10-[place] Hemaquet were advanced. Then the left femoral artery was cannulated on one occasion, one guidewire was advanced. Over the wire a 4-[place] Hemaquet was advanced. Then the right femoral vein was cannulated on one occasion, one guidewire was advanced. Over the wire a 8-[place] Hemaquet was advanced. Then under fluoroscopic guidance through the 6 and 7-[place] Hemaquet, two 5-[place] Darby curved quadripolar electrophysiology catheters were advanced and placed around the His as well as coronary sinus. Basic interval was measured. The patient was in atrial fibrillation. Through the 10-[place] Hemaquet, a CordOrangeSoda Sanchez AcuNav intracardiac echo catheter was advanced and placed at the right atrium. Multiple view was obtained. There was no pericardial effusion, pulmonary vein was seen, atrial septal was visualized. Then the 8-[place] Hemaquet in the right femoral vein was exchanged for Agilis transseptal sheath that was placed all the way to the superior vena cava. Through the sheath a Thad needle was advanced, then the sheath, the dilator and the needle were progressed until foci engaged. Once engaged, the needle was advanced. RF was delivered for 2 seconds. I was able to cross into the left atrium. Once the needle crossed, the dilator was advanced. Once the dilator crossed, the sheath was advanced. Once the sheath crossed, the dilator and the needle were removed. At this point I did flood the system and fluid movement was seen in the left atrium the indicates the sheath is in good position. The patient already received 10,000 units of heparin. The goal is to keep an ACT around 350 during ablation. Then through the sheath a [place] 20 pulse circumferential catheter was advanced. Using Colovore endocardial solution mapping system, a two-dimensional configuration of the left atrium was obtained. Points were taken at the left superior and inferior veins, right superior and inferior veins, mitral valve, and appendages. Then through the sheath a [place] TactiCath 65cm 3.5mm irrigated tipped mapping and radiofrequency ablation catheter was advanced. Esophageal probe was placed temperature monitoring during ablation. When it increased to 0.5 degrees Celsius above baseline, I moved to a different area of the atrium. First I did isolate the left superior and inferior vein. I did make a big karuk around the veins. Posterior was ablated. Then a roof line was created, a floor line was created, a mitral line was isolated, then the mitral valve was isolated I did create a line from the floor to the roof area, passing by the left atrial appendage. Then the right superior and inferior veins were isolated. I did remap the atrium. There is no significant signal in the atrium. At this point I decided to proceed with cardioversion. A 200 sync biphasic joule was delivered that converted the patient into sinus rhythm. At that point I did advance the circumferential catheter again into the vein. There was no signal into the vein, pacing from the vein showed no conduction to the atrium. Isuprel infusion was initiated at 10 mcg for 15 minutes. No tachyarrhythmia was induced, post Isuprel no tachyarrhythmia was induced. At that point the procedure was complete. All catheters were removed, atrial septal sheath was exchanged for 9-[place]er Hemaquet, intracardiac echo showed no pericardial effusion. There is still good flow in the pulmonary vein. The patient is going to be transferred to the recovery room. No incident report. The patient tolerated the procedure. Blood loss was minimal. FINDINGS 1. Electrocardiogram: At baseline the patient was in atrial fibrillation, post procedure the patient was in sinus rhythm. 2. Basic interval: Base cycle length was around 480. Post ablation she was around 1020 milliseconds. AH at 96 and HV at 54 milliseconds. 3. Tachyarrhythmia: Atrial fibrillation was mapped and ablated. The ablation was successful. CONCLUSION Successful electrophysiology study, mapping, radiofrequency ablation of atrial fibrillation, pulmonary vein isolation, posterior ablation, mitral valve isolation, mitral line creation, roof line creation, floor line creation, and cardioversion. COMMENTS AND RECOMMENDATIONS The patient is going to be transferred to the telemetry unit. Will be observed and when stable can be discharged home. Yung Nichole MD Jul 02, 2017 13:28
--- NOTE | 2017-07-02 13:32 | HHI.PR ---
Subjective Remarks Feeling better Objective Vital Signs Date Time Temp Pulse Resp B/P (MAP) Pulse Ox O2 Delivery O2 Flow Rate FiO2 07/02/17 11:23 97.6 83 16 118/49 (72) 97 07/02/17 07:24 97.5 101 18 126/80 (95) 95 07/02/17 03:00 98.4 89 18 127/71 (89) 96 07/01/17 21:00 98.5 84 18 142/60 (87) 96 07/01/17 20:30 98.4 77 14 132/63 (86) 95 Nasal Cannula 2 07/01/17 20:15 76 14 134/54 (80) 95 Nasal Cannula 2 07/01/17 20:00 74 14 126/60 (82) 94 Nasal Cannula 2 07/01/17 19:45 71 25 120/58 (78) 94 Nasal Cannula 2 07/01/17 19:33 97.7 72 20 125/58 (80) 93 Nasal Cannula 2 07/01/17 14:45 98.1 133 18 162/98 (119) 95 I/O 07/01/17 07/01/17 07/01/17 07/02/17 07/02/17 07/02/17 07:00 15:00 23:00 07:00 15:00 23:00 Intake Total 980 ml Output Total 1000 ml 600 ml Balance -1000 ml 380 ml Intake Oral 980 ml Output Urine Total 1000 ml 600 ml Result Diagram: 07/01/17 1425 07/01/17 1425 Imaging Alert, fully oriented Lungs: ventilated heart: S1, S2 regular, no gallop abdomen: soft, no mass Ext: no edema Current Medications Medications (Trade) Dose Ordered Sig/Farrah Route Start Time Stop Time Status Last Admin (Percocet 5-325 Mg) 1 tab Q4H PRN PO 07/01/17 18:45 (Percocet 5-325 Mg) 2 tab Q4H PRN PO 07/01/17 18:45 (Ativan Inj) 0.5 mg UNSCH PRN IV PUSH 07/01/17 18:45 07/02/17 18:44 (Atropine Inj) 0.5 mg UNSCH PRN IV PUSH 07/01/17 18:45 Sodium Chloride 250 ml @ 500 mls/hr ONCE PRN IV 07/01/17 18:45 07/02/17 18:44 (Zofran Inj) 4 mg Q4H PRN IV PUSH 07/01/17 18:45 (Xylocaine 1% Inj (50 ml)) 10 ml UNSCH PRN INFIL 07/01/17 18:45 07/02/17 18:44 (Cordarone) 200 mg DAILY PO 07/02/17 09:00 07/02/17 08:20 (Eliquis) 5 mg BID PO 07/01/17 21:00 07/02/17 08:23 (KlonoPIN) 0.5 mg HS PO 07/01/17 21:00 07/01/17 21:36 (Lasix) 40 mg DAILY PO 07/02/17 09:00 07/02/17 08:19 (KCl) 20 meq DAILY PO 07/02/17 09:00 07/02/17 08:20 Patient Own Medication PT OWN MED: (Levalbuterol 15 GM ... Q4HR WHILE AWAKE NEB INH 07/01/17 22:00 Future Hold (Toprol Xl) 50 mg DAILY PO 07/02/17 09:00 07/02/17 08:23 (Slo-Niacin) 500 mg DAILY PO 07/02/17 09:00 Miscellaneous Information ALL NURSING DEPARTME... UNSCH PRN .XX 07/01/17 19:31 07/02/17 19:30 (Tylenol) 650 mg Q6H PRN PO 07/02/17 02:00 07/02/17 02:40 Assessment and Plan Problem List: (1) Atrial fibrillation ICD Codes: I48.91 - Unspecified atrial fibrillation Plan: SP ablation In sinus rhythm doing better Will be DH Follow up as previously scheduled (2) Palpitations ICD Codes: R00.2 - Palpitations Plan: No episode reported since ablation Doing better Yung Nichole MD Jul 02, 2017 13:31
--- NOTE | 2017-07-02 20:50 | EKG ---
Date Performed: 07/01/2017 Time Performed: 14:46:12 PTAGE: 82 years EKG: Atrial fibrillation with rapid ventricular response. Low QRS voltages in precordial leads A bnormal ECG SINCE PRIOR TRACING NO SIGNIFICANT CHANGE PREVIOUS TRACING : 12/26/2016 21.45 DOCTOR: Madina Nur Interpretating Date/Time 07/02/2017 20:50:19
--- NOTE | 2017-07-03 06:20 | EKG ---
Date Performed: 07/01/2017 Time Performed: 19:47:49 PTAGE: 82 years EKG: Sinus rhythm NORMAL ECG Compared to PREVIOUS TRACING , the atrial fibrillation has resolved. The low QRS voltage has resolved . PREVIOUS TRACIN07/01/2017 14.46 DOCTOR: Madina Nur Interpretating Date/Time 07/03/2017 06:19:13
--- NOTE | 2017-07-03 06:21 | EKG ---
Date Performed: 07/02/2017 Time Performed: 04:36:10 PTAGE: 82 years EKG: Sinus rhythm with bigeminal PACs Poor R wave progression - probable normal variant Abnormal ECG Compared to PREVIOUS TRACING , the frequent PACs are new. There has been a slight overall reduction i n voltage. PREVIOUS TRACIN07/01/2017 19.47 DOCTOR: Madina Nur Interpretating Date/Time 07/03/2017 06:20:15
== END 2017-07-02 15:47 | disposition home or self-care (01) ==
LOC: HDOC 13:59 → HDIC 14:00 → HCIS 21:23 → HDOC 07-02 15:47
PROVIDERS: ATTEND Internal Medicine Interventional Cardiology
DX: I48.91 Unspecified atrial fibrillation (principal); I11.0 Hypertensive heart disease with heart failure; I50.9 Heart failure, unspecified; E78.2 Mixed hyperlipidemia; G47.33 Obstructive sleep apnea (adult) (pediatric); J47.9 Bronchiectasis, uncomplicated; G25.81 Restless legs syndrome
CPT/HCPCS: 00537; 80048; 85002; 85025; 85610; 85730; 86077; 86850; 86870; 86900; 86901; 86902; 86920; 86922; 92960; 93005; 93312; 93320; 93325; 93613; 93656; 93662; C1730; C1731; C1732; C1759; C1766; C2630; J1644; J1940; J1956; J2720; J3010

== ENCOUNTER 2017-07-06 17:13 | Inpatient (IN) | payer MEDICARE ==
[~2017-07-06] VITALS: Ht 157.5 cm; Wt 58.8 kg
[~2017-07-06 17:13] MED LIST changes: +AMIO200T PO; +BETA0.1C TOPICAL; -BETAMETHASONE TOPICAL; -LORA-650 PO; -VITA500S3 SL; +XOPEAER4 INH
[2017-07-06 17:32] VITALS: BP 184/72; PULSE 68; RESP 16; TEMP 98.4; O2SAT 96
[2017-07-06] MEDS ORDERED: SODIUM CHLORIDE 0.9% FLUSH 10 ML FLUSH IVF PRN (18:00)
[2017-07-06 18:09] LABS: AUTOMATED NEUTROPHIL # 8.7 TH/MM3 (1.8-7.7); BASOPHIL # 0.1 TH/MM3 (0-0.2); BASOPHIL % 0.7 % (0.0-2.0); EOSINOPHIL # 0.1 TH/MM3 (0-0.4); EOSINOPHIL % 0.8 % (0.0-4.0); HEMATOCRIT 36.3 % (35.0-46.0); LYMPH % 12.3 % (9.0-44.0); LYMPHOCYTE # 1.5 TH/MM3 (1.0-4.8); MEAN CELL VOLUME 88.9 FL (80.0-100.0); MEAN CORPUSCULAR HEMOGLOBIN 29.3 PG (27.0-34.0); MEAN PLATELET VOLUME 7.8 FL (7.0-11.0); MONO % 11.5 % (0.0-8.0); MONOCYTE # 1.4 TH/MM3 (0-0.9); NEUT % 74.7 % (16.0-70.0); PLATELET COUNT 369 TH/MM3 (150-450); RED BLOOD COUNT 4.08 MIL/MM3 (4.00-5.30); RED CELL DISTRIBUTION WIDTH 14.3 % (11.6-17.2); WHITE BLOOD COUNT 11.8 TH/MM3 (4.0-11.0)
--- NOTE | 2017-07-06 18:11 | RADRPT ---
EXAM DATE/TIME: 07/06/2017 17:59 [facility] COMPARISON: CHEST PA & LAT, September 30, 2011, 12:51. INDICATIONS : Shortness of breath after dusting today. MEDICAL HISTORY : Congestive heart failure. Hypercholesterolemia. Hypertension. A-fib. SURGICAL HISTORY : None. ENCOUNTER: Initial ACUITY: 1 day PAIN SCORE: 0/10 LOCATION: Bilateral chest FINDINGS: A single view of the chest demonstrates the lungs to be symmetrically aerated without evidence of mas s, infiltrate or effusion. The cardiomediastinal contours are unremarkable. Osseous structures are intact. CONCLUSION: No acute disease. Hugo Hubbard Jr., MD on July 06, 2017 at 18:05 Board Certified Radiologist. This report was verified electronically.
[2017-07-06 18:17] LABS: CHLORIDE 99 MEQ/L (98-107); SODIUM (NA) 134 MEQ/L (136-145)
[2017-07-06 18:19] LABS: CALCIUM 8.4 MG/DL (8.5-10.1)
[2017-07-06 18:20] LABS: ALBUMIN 3.1 GM/DL (3.4-5.0); BICARBONATE 27.5 MEQ/L (21.0-32.0); BLOOD UREA NITROGEN 11 MG/DL (7-18); GLUCOSE,RANDOM 109 MG/DL (74-106); INTERNATIONAL NORMALIZED RATIO 1.1 RATIO; PROTHROMBIN TIME - PATIENT 11.5 SEC (9.8-11.6)
[2017-07-06 18:23] LABS: ALT (GPT) 22 U/L (10-53); AST (GOT) 21 U/L (15-37); CREATININE 0.69 MG/DL (0.50-1.00); GLOMERULAR FILTRATION RATE 81 ML/MIN (>89)
[2017-07-06 18:25] LABS: TOTAL BILIRUBIN ADULT 0.6 MG/DL (0.2-1.0); TOTAL PROTEIN 6.6 GM/DL (6.4-8.2)
[2017-07-06 18:26] LABS: ALKALINE PHOSPHATASE 96 U/L (45-117)
[2017-07-06 18:28] LABS: TROPONIN I 0.49 NG/ML (0.02-0.05)
[2017-07-06] MEDS ORDERED: ASPIRIN 81 MG CHEW TAB CHEW ONE (19:00)
[2017-07-06 19:09] VITALS: O2SAT 97
[2017-07-06 19:13] VITALS: BP 144/63; PULSE 66; RESP 18; O2SAT 97
--- NOTE | 2017-07-06 19:26 | PD ---
HPI Chief Complaint: Chest Pain Time Seen by Provider: 17:45 Travel History International Travel<30 days: No Contact w/Intl Traveler<30days: No Traveled to known affect area: No History of Present Illness HPI Patient is an 82-year-old female comes in complaining of chest pain and shortness of breath. She had an ablation performed on July 01, and was feeling fine. She says the pain started today and she has been feeling very weak, so she came in. She says that exertion seems to make her symptoms worse. Nothing seems to make her symptoms better. She denies nausea or vomiting. She has been taking all her medications as prescribed. She denies any leg swelling or leg pain. PFSH Past Medical History Hx Anticoagulant Therapy: Yes (ELEQUIS) Arthritis: Yes Atrial Fibrillation: Yes Blood Disorders: No Anxiety: No Depression: No Heart Rhythm Problems: Yes Cancer: Yes (melanoma left side of face) Cardiovascular Problems: Yes High Cholesterol: Yes Chemotherapy: No Chest Pain: No Congestive Heart Failure: Yes Diabetes: No Diminished Hearing: No Endocrine: No Gastrointestinal Disorders: No Glaucoma: No Genitourinary: No Hepatitis: No Hiatal Hernia: No Herniated Disk: Yes Hypertension: Yes Immune Disorder: No Implanted Vascular Access Dvce: Yes Medical other: Yes (PSORASIS) Musculoskeletal: Yes Neurologic: No Psychiatric: No Reproductive: No Respiratory: Yes Integumentary: Yes (vaginal area) Radiation Therapy: No Thyroid Disease: No PNEUMOCCOCAL Vaccine (Year): 1 ?: Not Menopausal: Yes : 6 Para: 4 Miscarriage: 2 Past Surgical History Section: Yes Gynecologic Surgery: Yes (ECTOPIC , C SECTION) Joint Replacement: Yes (LEFT HIP) Pacemaker: No Other Surgery: Yes Social History Alcohol Use: Yes (couple glasses of wine occ) Tobacco Use: No (QUIT ) Substance Use: No Allergies-Medications (Allergen,Severity, Reaction): Coded Allergies: carisoprodol (Verified Allergy, Severe, Nausea/Vomiting, 07/01/17) codeine (Unverified Allergy, Severe, NV, 02/03/17) fentanyl (Unverified Allergy, Severe, n/v, 02/03/17) propoxyphene (Unverified Allergy, Severe, n/v, 02/03/17) acetaminophen (Unverified Adverse Reaction, Severe, VOMITING, 02/03/17) hydrocodone (Unverified Adverse Reaction, Severe, VOMITING, 02/03/17) meperidine (Unverified Adverse Reaction, Severe, VOMITING, 02/03/17) tramadol (Unverified Adverse Reaction, Severe, VOMITING, 02/03/17) Uncoded Allergies: CODEINE (Adverse Reaction, Severe, VOMITING, 09/30/11) Reported Meds & Prescriptions Reported Meds & Active Scripts Active Reported Xopenex Hfa 15 GM Inh (Levalbuterol 15 GM Inh) 45 Mcg/Act Aer 45 Mcg INH Q4HR Shake well before using. (1 puff = 45 mcg) Klonopin (Clonazepam) 0.5 Mg Tab 0.5 Mg PO HS Betamethasone Valerate Topical 0.1% Cream 1 Applic TOPICAL BID Amiodarone (Amiodarone HCl) 200 Mg Tab 200 Mg PO DAILY K-Tab (Potassium Chloride) 10 Meq Tab 20 Meq PO DAILY Furosemide 20 Mg Tab 40 Mg PO DAILY Eliquis (Apixaban) 5 Mg Tab 5 Mg PO BID Niacin 500 Mg Tab 500 Mg PO DAILY Metoprolol Succinate ER 24 HR (Metoprolol Succinate) 100 Mg Tab 50 Mg PO DAILY Metamucil Smooth Texture (Psyllium Hydrophilic Mucilloid) 28.3 % Pow 1 Scoop PO BID PRN 1 rounded TEASPOON in 8 oz of liquid at the first sign of irregularity. Review of Systems Except as stated in HPI: all other systems reviewed are Neg General / Constitutional: No: Fever, Chills HENT: No: Headaches, Lightheadedness Cardiovascular: Positive: Chest Pain or Discomfort Respiratory: Positive: Shortness of Breath Gastrointestinal: No: Nausea, Vomiting Genitourinary: No: Dysuria Musculoskeletal: No: Myalgias, Edema Skin: No Rash, No Change in Pigmentation Neurologic: No: Weakness, Dizziness Physical Exam Narrative GENERAL: Awake and alert, in no acute distress. SKIN: Focused skin assessment warm/dry. HEAD: Atraumatic. Normocephalic. EYES: Pupils equal and round. No scleral icterus. ENT: Mucous membranes pink and moist. NECK: Trachea midline. No JVD. CARDIOVASCULAR: Regular rate and rhythm. No murmur appreciated. RESPIRATORY: No accessory muscle use. Minimal crackles to the right lung base. Breath sounds equal bilaterally. GASTROINTESTINAL: Abdomen soft, non-tender, nondistended. MUSCULOSKELETAL: No obvious deformities. No clubbing. No cyanosis. No edema. NEUROLOGICAL: Awake and alert. No obvious cranial nerve deficits. Motor grossly within normal limits. Normal speech. PSYCHIATRIC: Appropriate mood and affect; insight and judgment normal. Data Data Last Documented VS Vital Signs Date Time Temp Pulse Resp B/P (MAP) Pulse Ox O2 Delivery O2 Flow Rate FiO2 07/06/17 19:13 66 18 144/63 (90) 97 Room Air 07/06/17 17:32 98.4 Orders Orders Complete Blood Count With Diff (07/06/17 17:54) Comprehensive Metabolic Panel (07/06/17 17:54) B-Type Natriuretic Peptide (07/06/17 17:54) Act Partial Throm Time (Ptt) (07/06/17 17:54) Prothrombin Time / Inr (Pt) (07/06/17 17:54) Troponin I (07/06/17 17:54) Iv Access Insert/Monitor (07/06/17 17:54) Ecg Monitoring (07/06/17 17:54) Oximetry (07/06/17 17:54) Oxygen Administration (07/06/17 17:54) Chest, Single Ap (07/06/17 17:54) Sodium Chloride 0.9% Flush (Ns Flush) (07/06/17 18:00) Aspirin Chew (Aspirin Chew) (07/06/17 19:00) Labs Laboratory Tests Test 07/06/17 17:51 White Blood Count 11.8 TH/MM3 Red Blood Count 4.08 MIL/MM3 Hemoglobin 12.0 GM/DL Hematocrit 36.3 % Mean Corpuscular Volume 88.9 FL Mean Corpuscular Hemoglobin 29.3 PG Mean Corpuscular Hemoglobin Concent 33.0 % Red Cell Distribution Width 14.3 % Platelet Count 369 TH/MM3 Mean Platelet Volume 7.8 FL Neutrophils (%) (Auto) 74.7 % Lymphocytes (%) (Auto) 12.3 % Monocytes (%) (Auto) 11.5 % Eosinophils (%) (Auto) 0.8 % Basophils (%) (Auto) 0.7 % Neutrophils # (Auto) 8.7 TH/MM3 Lymphocytes # (Auto) 1.5 TH/MM3 Monocytes # (Auto) 1.4 TH/MM3 Eosinophils # (Auto) 0.1 TH/MM3 Basophils # (Auto) 0.1 TH/MM3 CBC Comment AUTO DIFF Differential Comment AUTO DIFF CONFIRMED Prothrombin Time 11.5 SEC Prothromb Time International Ratio 1.1 RATIO Activated Partial Thromboplast Time 29.1 SEC Blood Urea Nitrogen 11 MG/DL Creatinine 0.69 MG/DL Random Glucose 109 MG/DL Total Protein 6.6 GM/DL Albumin 3.1 GM/DL Calcium Level 8.4 MG/DL Alkaline Phosphatase 96 U/L Aspartate Amino Transf (AST/SGOT) 21 U/L Alanine Aminotransferase (ALT/SGPT) 22 U/L Total Bilirubin 0.6 MG/DL Sodium Level 134 MEQ/L Potassium Level 4.1 MEQ/L Chloride Level 99 MEQ/L Carbon Dioxide Level 27.5 MEQ/L Anion Gap 8 MEQ/L Estimat Glomerular Filtration Rate 81 ML/MIN Troponin I 0.49 NG/ML B-Type Natriuretic Peptide 184 PG/ML MDM Medical Decision Making Medical Screen Exam Complete: Yes Emergency Medical Condition: Yes Medical Record Reviewed: Yes Interpretation(s) ECG shows normal sinus rhythm at 69, no ST elevation or depression, normal intervals Differential Diagnosis ACS versus NSTEMI versus STEMI versus CHF exacerbation Narrative Course Patient is an 82-year-old female comes in complaining of chest pain or shortness of breath. Exam shows minimal crackles at the lung bases. IV established, labs sent. Labs show a troponin of 0.49. It is possible, the elevation in troponin is secondary to the procedure she had. However, in the setting of chest pain, this needs to be monitored. I spoke with Dr. Bonner of cardiology who suggests holding any further anticoagulation at this time, patient is already on Eliquis anyways and monitoring the troponin level. Last 24 hours Impressions Chest X-Ray 07/06/17 [id number] Signed Impressions: Service Date/Time: Thursday, July 06, 2017 17:59 - CONCLUSION: No acute disease. Hugo Hubbard Jr., MD Patient will be admitted for further management. Diagnosis Primary Impression: Chest pain Qualified Codes: R07.9 - Chest pain, unspecified Additional Impression: Elevated troponin I level Admitting Information Admitting Physician Requests: Observation Vandana Boucher MD Jul 06, 2017 19:25
[2017-07-06] MEDS ORDERED: SODIUM CHLORIDE 0.9% FLUSH 10 ML FLUSH IV FLUSH PRN (20:00)
[2017-07-06] MEDS ORDERED: NALOXONE HCL 0.4 MG/ML AMP IV PUSH PRN (20:00)
[2017-07-06 20:32] VITALS: BP 140/61; PULSE 68; RESP 18; O2SAT 97
[2017-07-06] MEDS: SODIUM CHLORIDE 0.9% FLUSH 10 ML FLUSH IV FLUSH SCH (21:01)
[2017-07-06 21:54] VITALS: BP 141/66; PULSE 64; RESP 18; O2SAT 96
[2017-07-06 22:51] VITALS: PULSE 68
[2017-07-07] VITALS (23 sets, daily range): BP systolic 94–172; BP diastolic 48–93; PULSE 65–133; RESP 16–35; TEMP 96–100.9; O2SAT 93–97
[2017-07-07 00:08] LABS: TROPONIN I 0.32 NG/ML (0.02-0.05)
[2017-07-07 06:27] LABS: AUTOMATED NEUTROPHIL # 8.1 TH/MM3 (1.8-7.7); BASOPHIL % 0.4 % (0.0-2.0); EOSINOPHIL # 0.1 TH/MM3 (0-0.4); EOSINOPHIL % 0.5 % (0.0-4.0); HEMATOCRIT 35.1 % (35.0-46.0); HEMOGLOBIN 11.5 GM/DL (11.6-15.3); LYMPH % 14.2 % (9.0-44.0); LYMPHOCYTE # 1.6 TH/MM3 (1.0-4.8); MEAN CELL VOLUME 90.4 FL (80.0-100.0); MEAN CORPUSCULAR HEMOGLOBIN 29.6 PG (27.0-34.0); MEAN CORPUSCULAR HGB CONC 32.7 % (32.0-36.0); MEAN PLATELET VOLUME 8.4 FL (7.0-11.0); MONOCYTE # 1.5 TH/MM3 (0-0.9); NEUT % 71.9 % (16.0-70.0); PLATELET COUNT 273 TH/MM3 (150-450); RED BLOOD COUNT 3.89 MIL/MM3 (4.00-5.30); RED CELL DISTRIBUTION WIDTH 14.4 % (11.6-17.2); WHITE BLOOD COUNT 11.3 TH/MM3 (4.0-11.0)
[2017-07-07 06:43] LABS: CALCIUM 8.3 MG/DL (8.5-10.1)
[2017-07-07 06:44] LABS: BICARBONATE 26.4 MEQ/L (21.0-32.0)
[2017-07-07 06:45] LABS: TROPONIN I 0.21 NG/ML (0.02-0.05)
[2017-07-07 06:47] LABS: CREATININE 0.58 MG/DL (0.50-1.00)
[2017-07-07] MEDS: SODIUM CHLORIDE 0.9% FLUSH 10 ML FLUSH IV FLUSH SCH ×2 (09:00→20:39)
--- NOTE | 2017-07-07 09:04 | HHI.HP ---
[facility] Primary Care Physician Sharonda Faust MD Admission Diagnosis Chest pain, elevated troponin Diagnoses: (1) Elevated troponin I level (2) Chest pain (3) Atrial fibrillation Chief Complaint: Chest pain Travel History International Travel<30 Days: No Contact w/Intl Traveler <30 Da: No Traveled to Known Affected Are: No History of Present Illness The patient is an 82-year-old female who presented to the emergency department with complaint of chest pain and dyspnea. She had ablation performed by Dr. Nichole on 07/01/17. States that she had back pain following that procedure, which seems to have worsened a little. She reports that her chest pain is in the center of her chest feels tight. It does not radiate. It is worse with exertion. Currently pain is 5/10. At its worst it was 8/10. She denies nausea or vomiting. Review of Systems Constitutional: DENIES: Fever, Chills, Night Sweats Eyes: DENIES: Blurred vision, Vision loss Ears, nose, mouth, throat: DENIES: Hearing loss Respiratory: COMPLAINS OF: Shortness of breath, DENIES: Cough, Wheezing, Sputum production Cardiovascular: COMPLAINS OF: Chest pain, Dyspnea on Exertion, DENIES: Palpitations, Lower Extremity Edema Gastrointestinal: DENIES: Abdominal pain, Constipation, Diarrhea, Nausea, Vomiting Genitourinary: DENIES: Urinary frequency, Urinary incontinence, Urgency, Hematuria, Dysuria, Nocturia Musculoskeletal: DENIES: Joint pain, Muscle aches Integumentary: DENIES: Pruritus, Rash Hematologic/lymphatic: DENIES: Bruising Neurologic: DENIES: Headache Past Family Social History Past Medical History Atrial fibrillation History of melanoma Psoriasis Hypertension Hyperlipidemia History of congestive heart failure Past Surgical History Left hip replacement section Oophorectomy secondary to ectopic Tonsillectomy Reported Medications Xopenex Hfa 15 GM Inh (Levalbuterol 15 GM Inh) 45 Mcg/Act Aer 45 Mcg INH Q4HR Shake well before using. (1 puff = 45 mcg) Klonopin (Clonazepam) 0.5 Mg Tab 0.5 Mg PO HS Betamethasone Valerate Topical 0.1% Cream 1 Applic TOPICAL BID Amiodarone (Amiodarone HCl) 200 Mg Tab 200 Mg PO DAILY K-Tab (Potassium Chloride) 10 Meq Tab 20 Meq PO DAILY Furosemide 20 Mg Tab 40 Mg PO DAILY Eliquis (Apixaban) 5 Mg Tab 5 Mg PO BID Niacin 500 Mg Tab 500 Mg PO DAILY Metoprolol Succinate ER 24 HR (Metoprolol Succinate) 100 Mg Tab 50 Mg PO DAILY Metamucil Smooth Texture (Psyllium Hydrophilic Mucilloid) 28.3 % Pow 1 Scoop PO BID PRN 1 rounded TEASPOON in 8 oz of liquid at the first sign of irregularity. Allergies: Coded Allergies: carisoprodol (Verified Allergy, Severe, Nausea/Vomiting, 07/01/17) codeine (Unverified Allergy, Severe, NV, 02/03/17) fentanyl (Unverified Allergy, Severe, n/v, 02/03/17) propoxyphene (Unverified Allergy, Severe, n/v, 02/03/17) acetaminophen (Unverified Adverse Reaction, Severe, VOMITING, 02/03/17) hydrocodone (Unverified Adverse Reaction, Severe, VOMITING, 02/03/17) meperidine (Unverified Adverse Reaction, Severe, VOMITING, 02/03/17) tramadol (Unverified Adverse Reaction, Severe, VOMITING, 02/03/17) Uncoded Allergies: CODEINE (Adverse Reaction, Severe, VOMITING, 09/30/11) Family History Heart disease Liver cancer Social History Quit smoking 50 years ago. Drinks an occasional glass of wine. Denies illicit drug use. Physical Exam Vital Signs Vital Signs Date Time Temp Pulse Resp B/P (MAP) Pulse Ox O2 Delivery O2 Flow Rate FiO2 07/07/17 08:00 98.8 65 18 132/62 (85) 93 07/07/17 04:00 100.9 71 18 138/62 (87) 94 07/07/17 00:00 99.6 71 18 150/60 (90) 97 07/06/17 22:51 68 07/06/17 22:39 66 18 97 07/06/17 21:54 64 18 141/66 (91) 96 Room Air 07/06/17 20:32 68 18 140/61 (87) 97 Room Air 07/06/17 19:13 66 18 144/63 (90) 97 Room Air 07/06/17 19:09 97 Room Air 07/06/17 19:09 97 07/06/17 17:35 16 07/06/17 17:32 98.4 68 16 184/72 (109) 96 Physical Exam GENERAL: Elderly female in no acute distress. HEENT: Normocephalic, atraumatic. Pupils equal, round and reactive. Extraocular movements intact. No scleral icterus. No injection or drainage. Oropharynx is clear. Mucous membranes are moist. CARDIOVASCULAR: Regular rate and rhythm without murmurs, gallops, or rubs. RESPIRATORY: Clear to auscultation. No wheezes, rales, or rhonchi. Breathing is non-labored. GASTROINTESTINAL: Abdomen soft, non-tender, nondistended. EXTREMITIES: No lower extremity edema. No calf tenderness. PSYCH: Alert and oriented x 3. Laboratory Laboratory Tests Test 07/06/17 17:51 07/06/17 23:40 07/07/17 05:35 White Blood Count 11.8 11.3 Red Blood Count 4.08 3.89 Hemoglobin 12.0 11.5 Hematocrit 36.3 35.1 Mean Corpuscular Volume 88.9 90.4 Mean Corpuscular Hemoglobin 29.3 29.6 Mean Corpuscular Hemoglobin Concent 33.0 32.7 Red Cell Distribution Width 14.3 14.4 Platelet Count 369 273 Mean Platelet Volume 7.8 8.4 Neutrophils (%) (Auto) 74.7 71.9 Lymphocytes (%) (Auto) 12.3 14.2 Monocytes (%) (Auto) 11.5 13.0 Eosinophils (%) (Auto) 0.8 0.5 Basophils (%) (Auto) 0.7 0.4 Neutrophils # (Auto) 8.7 8.1 Lymphocytes # (Auto) 1.5 1.6 Monocytes # (Auto) 1.4 1.5 Eosinophils # (Auto) 0.1 0.1 Basophils # (Auto) 0.1 0.0 CBC Comment AUTO DIFF DIFF FINAL Differential Comment AUTO DIFF CONFIRMED Prothrombin Time 11.5 Prothromb Time International Ratio 1.1 Activated Partial Thromboplast Time 29.1 Blood Urea Nitrogen 11 10 Creatinine 0.69 0.58 Random Glucose 109 105 Total Protein 6.6 Albumin 3.1 Calcium Level 8.4 8.3 Alkaline Phosphatase 96 Aspartate Amino Transf (AST/SGOT) 21 Alanine Aminotransferase (ALT/SGPT) 22 Total Bilirubin 0.6 Sodium Level 134 135 Potassium Level 4.1 4.0 Chloride Level 99 99 Carbon Dioxide Level 27.5 26.4 Anion Gap 8 10 Estimat Glomerular Filtration Rate 81 99 Troponin I 0.49 0.32 0.21 B-Type Natriuretic Peptide 184 Total Creatine Kinase 21 16 Result Diagram: 07/07/17 0535 07/07/17 0535 Imaging Last Impressions Chest X-Ray 07/06/17 8524 Signed Impressions: Service Date/Time: Thursday, July 06, 2017 17:59 - CONCLUSION: No acute disease. MD Mukul Medeiros Jr. VTE Risk Assessment Mukul VTE Risk Assessment: Mod/High Risk (score >= 2) Caprini Risk Assessment Model Point Value = 1 Point Value = 2 Point Value = 3 Point Value = 5 Age 41-60 Minor surgery BMI > 25 kg/m2 Swollen legs Varicose veins or History of unexplained or recurrent spontaneous Oral contraceptives or hormone replacement Sepsis (< 1 month) Serious lung disease, including pneumonia (< 1 month) Abnormal pulmonary function Acute myocardial infarction Congestive heart failure (< 1 month) History of inflammatory bowel disease Medical patient at bed rest Age 61-74 Arthroscopic surgery Major open surgery (> 45 min) Laparoscopic surgery (> 45 min) Malignancy Confined to bed (> 72 hours) Immobilizing plaster cast Central venous access Age >= 75 History of VTE Family history of VTE Factor V Leiden Prothrombin [id number] Lupus anticoagulant Anticardiolipin antibodies Elevated serum homocysteine Heparin-induced thrombocytopenia Other congenital or acquired thrombophilia Stroke (< 1 month) Elective arthroplasty Hip, pelvis, or leg fracture Acute spinal cord injury (< 1 month) Prophylaxis Regimen Total Risk Factor Score Risk Level Prophylaxis Regimen 0-1 Low Early ambulation 2 Moderate Order ONE of the following: *Sequential Compression Device (SCD) *Heparin 5000 units SQ BID 3-4 Higher Order ONE of the following medications: *Heparin 5000 units SQ TID *Enoxaparin/Lovenox 40 mg SQ daily (WT < 150 kg, CrCl > 30 mL/min) *Enoxaparin/Lovenox 30 mg SQ daily (WT < 150 kg, CrCl > 10-29 mL/min) *Enoxaparin/Lovenox 30 mg SQ BID (WT < 150 kg, CrCl > 30 mL/min) AND/OR *Sequential Compression Device (SCD) 5 or more Highest Order ONE of the following medications: *Heparin 5000 units SQ TID (Preferred with Epidurals) *Enoxaparin/Lovenox 40 mg SQ daily (WT < 150 kg, CrCl > 30 mL/min) *Enoxaparin/Lovenox 30 mg SQ daily (WT < 150 kg, CrCl > 10-29 mL/min) *Enoxaparin/Lovenox 30 mg SQ BID (WT < 150 kg, CrCl > 30 mL/min) AND *Sequential Compression Device (SCD) Assessment and Plan Assessment and Plan 1. Chest pain, elevated troponin: Troponin has been trending down. EKGs reviewed. Patient is status post ablation 1 week ago. Cardiology consultation is pending. 2. Hypertension: Continue metoprolol. 3. Hyperlipidemia: Continue niacin. 4. Atrial fibrillation: Continue Eliquis, amiodarone. Currently in sinus rhythm. 5. DVT prophylaxis: Eliquis. Problem Qualifiers (1) Chest pain: Qualified Codes: R07.9 - Chest pain, unspecified Miguel Jimenez MD Jul 07, 2017 09:04
[2017-07-07] MEDS: APIXABAN 5 MG TABLET PO SCH ×2 (09:15→14:43)
[2017-07-07] MEDS: NIACIN 500 MG EXTENDED RELEASE TAB PO SCH (09:45)
[2017-07-07] MEDS ORDERED: BETAMETHASONE VALERATE 0.1% TOPICAL SCH (09:45)
[2017-07-07] MEDS ORDERED: PSYLLIUM HUSK SF 3.4 GM in 5.8 GM PKT PO SCH (09:45)
[2017-07-07] MEDS: PSYLLIUM FIBER SF/GF 6 GM POWD PKT PO SCH ×2 (10:41→21:01)
[2017-07-07] MEDS ORDERED: LEVALBUTEROL PO SCH (12:00)
[2017-07-07] MEDS: AMIODARONE 200 MG TAB PO SCH (12:37)
[2017-07-07] MEDS: METOPROLOL SUCCINATE 50 MG EXTENDED RELEASE TAB PO SCH ×2 (12:38→20:48)
[2017-07-07] MEDS: POTASSIUM CHLORIDE 10 MEQ CONTROLLED RELEASE TAB PO SCH (12:38)
[2017-07-07] MEDS: FUROSEMIDE 40 MG TAB PO SCH (12:39)
[2017-07-07] MEDS: ACETAMINOPHEN 325 MG TAB PO PRN (14:10)
--- NOTE | 2017-07-07 16:19 | EKG ---
Date Performed: 07/06/2017 Time Performed: 17:21:55 PTAGE: 82 years EKG: Sinus rhythm WITH SINUS ARRHYTHMIA Since previous tracing, no significant change noted NORMAL ECG PREVIOUS TRACING : 07/02/2017 04.36.10 DOCTOR: Madina Nur Interpretating Date/Time 07/07/2017 16:35:21
--- NOTE | 2017-07-07 16:21 | EKG ---
Date Performed: 07/07/2017 Time Performed: 04:59:38 PTAGE: 82 years EKG: Sinus rhythm WITH OCCASIONAL SUPRAVENTRICULAR PREMATURE COMPLEXES Since previous tracing, no significant change n oted BORDERLINE ECG PREVIOUS TRACING : 07/06/2017 23.22 DOCTOR: Madina Nur Interpretating Date/Time 07/07/2017 16:36:43
--- NOTE | 2017-07-07 16:21 | EKG ---
Date Performed: 07/06/2017 Time Performed: 23:22:55 PTAGE: 82 years EKG: Sinus rhythm Since previous tracing, no significant change noted NORMAL ECG PREVIOUS TRACING : 07/06/2017 17.21..55 DOCTOR: Madina Nur Interpretating Date/Time 07/07/2017 16:36:23
[2017-07-07] MEDS ORDERED: DILTIAZEM INJ 125 MG in SODIUM CHLORIDE 0.9% INJ 100 ML IV PRN (17:00)
[2017-07-07] MEDS ORDERED: DILTIAZEM HCL 25 MG/5 ML VIAL IV ONE (17:30)
[2017-07-07] MEDS ORDERED: DIGOXIN 0.5 MG/2 ML VIAL IV PUSH ONE (19:30)
--- NOTE | 2017-07-07 19:51 | MB ---
cc: BOZENA FRENCH M.D. DATE OF CONSULTATION: 07/07/2017 REASON FOR CONSULTATION: Atrial fibrillation, chest pain. HISTORY OF PRESENT ILLNESS The patient is a very pleasant 82-year-old white female with a history of hypertension, paroxysmal atrial fibrillation status post recent ablation, hyperlipidemia, osteoarthritis who presented to the hospital with complaints of chest and back discomfort as well as shortness of breath. The patient states in the first few days after her ablation last week she did have a mid back discomfort which was exacerbated by lying supine and relieved by lying on her right side. That discomfort for the most part has resolved. Yesterday while vacuuming she developed a substernal chest discomfort described as "dull ache" associated with the same mid back pain as well as shortness of breath. The chest discomfort persisted in a constant fashion for several hours. She denies pleurisy, palpitations, lightheadedness, syncope, near-syncope, pedal edema, paroxysmal nocturnal dyspnea. She cannot recall any other episodes of chest discomfort ever. PAST MEDICAL HISTORY 1. Hypertension. 2. Osteoarthritis. 3. Lumbar spinal stenosis status post back surgery 2011. 4. Hyperlipidemia. 5. Melanoma resection from the left face. 6. Paroxysmal atrial fibrillation status post ablation 07/01/2017. PAST SURGICAL HISTORY 1. Left total hip arthroplasty 2008. 2. Lumbar laminectomies and micro diskectomies 10/01/2011. CARDIAC MEDICATIONS AT HOME: 1. Metoprolol succinate 50 mg daily. 2. Eliquis 5 mg b.i.d. 3. Furosemide 40 mg daily. 4. Potassium chloride 20 mg qd. 5. Amiodarone 200 mg daily. ALLERGIES A number of allergies as listed in the medical records. FAMILY HISTORY Noncontributory. SOCIAL HISTORY The patient quit smoking in the 1970s. She drinks occasional alcohol. REVIEW OF SYSTEMS: As in the history of present illness otherwise negative or noncontributory. She also denies headache, visual changes, unilateral weakness or numbness, abdominal pain, melena, dyspepsia, bright red blood per rectum. PHYSICAL EXAMINATION: On physical examination her blood pressure is 110/90 with a pulse of 85, respirations 16. GENERAL: She is a well-developed, well-nourished white female in no acute distress. HEENT examination: Jugular venous pressure is normal. Carotid pulses are 2+ bilaterally and without bruits. CHEST: Examination of the chest reveals clear lung ramirez. CARDIAC: On cardiac examination she has an irregularly irregular rhythm without S3 or murmur. ABDOMEN: On abdominal examination she has a soft, nontender abdomen. Bowel sounds are present. There is no definite hepatosplenomegaly. EXTREMITIES: Examination of extremities reveals no clubbing, cyanosis or edema. EKG shows normal sinus rhythm, normal EKG. LABORATORY DATA Includes potassium 4.0, BUN 10, creatinine 0.58, CK 21, troponin 0.49. Chest x-ray: Shows no acute disease. IMPRESSION Recurrent atrial fibrillation with rapid ventricular response, extremely atypical chest pain, slightly abnormal troponin levels in this 82 year-old white female with history of recent atrial fibrillation ablation, hyperlipidemia, hypertension. At this time she remains in atrial fibrillation with controlled response after administration of IV Cardizem bolus. Currently, her blood pressure is probably too low to initiate a Cardizem drip. With respect to her chest pain, the single episode yesterday was extremely atypical for myocardial ischemia. EKG is normal. Despite at least several hours of constant chest discomfort, CK levels are negative for acute myocardial infarction. Clinical suspicious for pulmonary embolism is low. She has had no other chest discomfort ever. Lastly, she had a normal nuclear stress test six months ago. RECOMMENDATIONS 1. Continue her usual home cardiac medications. 2. No additional cardiac workup at this time. 3. Will have Dr. Nichole follow up for her recurrent atrial fibrillation. At this time her heart rate is under control after a single bolus of intravenous Cardizem, although her blood pressures are relatively low, precluding the use of an IV Cardizem drip. MD EARLINE Melchor/CHA /7:05 PM /7:32 PM [id number]
[2017-07-07] MEDS ORDERED: clonazePAM 0.5 MG TAB PO SCH (21:00)
[2017-07-08] VITALS (11 sets, daily range): BP systolic 114–157; BP diastolic 58–71; PULSE 96–108; RESP 15–37; TEMP 97.6–98.5; O2SAT 94–95
[2017-07-08] MEDS: ACETAMINOPHEN 325 MG TAB PO PRN (01:42)
[2017-07-08] MEDS ORDERED: METO1TAB9 PO (07:38)
[2017-07-08] MEDS: POTASSIUM CHLORIDE 10 MEQ CONTROLLED RELEASE TAB PO SCH (08:28)
[2017-07-08] MEDS: APIXABAN 5 MG TABLET PO SCH (08:28)
[2017-07-08] MEDS: AMIODARONE 200 MG TAB PO SCH (08:28)
[2017-07-08] MEDS: SODIUM CHLORIDE 0.9% FLUSH 10 ML FLUSH IV FLUSH SCH (08:28)
[2017-07-08] MEDS: METOPROLOL SUCCINATE 50 MG EXTENDED RELEASE TAB PO SCH (08:28)
[2017-07-08] MEDS: FUROSEMIDE 40 MG TAB PO SCH (08:28)
[2017-07-08] MEDS: NIACIN 500 MG EXTENDED RELEASE TAB PO SCH (08:29)
[2017-07-08] MEDS: PSYLLIUM FIBER SF/GF 6 GM POWD PKT PO SCH (08:29)
[2017-07-08] MEDS ORDERED: DIGO0.12 PO (09:24)
--- NOTE | 2017-07-08 09:24 | HHI.DCPOC ---
Discharge Care Plan Diagnosis: (1) Atrial fibrillation (2) Elevated troponin I level (3) Chest pain Goals to Promote Your Health * To prevent worsening of your condition and complications * To maintain your health at the optimal level Directions to Meet Your Goals Take your medications as prescribed Follow your dietary instruction Follow activity as directed Keep your appointments as scheduled Take your immunizations and boosters as scheduled If your symptoms worsen call your PCP, if no PCP go to Urgent Care Center or Emergency Room Smoking is Dangerous to Your Health. Avoid second hand smoke Call the 24-hour hour crisis hotline for domestic abuse at Miguel Chin Jul 08, 2017 09:24
--- NOTE | 2017-07-08 09:29 | HHI.DS ---
Discharge Summary Admission Date Jul 07, 2017 at 16:01 Discharge Date: Jul 08, 2017 Admitting Diagnosis Chest pain, elevated troponin (1) Elevated troponin I level ICD Code: R74.8 - Abnormal levels of other serum enzymes Status: Acute (2) Chest pain ICD Code: R07.9 - Chest pain, unspecified Status: Acute (3) Atrial fibrillation ICD Code: I48.91 - Unspecified atrial fibrillation Procedures None Brief History - From Admission The patient is an 82-year-old female who presented to the emergency department with complaint of chest pain and dyspnea. She had ablation performed by Dr. Nichole on 07/01/17. States that she had back pain following that procedure, which seems to have worsened a little. She reports that her chest pain is in the center of her chest feels tight. It does not radiate. It is worse with exertion. Currently pain is 5/10. At its worst it was 8/10. She denies nausea or vomiting. CBC/BMP: 07/07/17 0535 07/07/17 0535 Significant Findings Laboratory Tests Test 07/06/17 17:51 07/06/17 23:40 07/07/17 05:35 White Blood Count 11.8 TH/MM3 (4.0-11.0) 11.3 TH/MM3 (4.0-11.0) Neutrophils (%) (Auto) 74.7 % (16.0-70.0) 71.9 % (16.0-70.0) Monocytes (%) (Auto) 11.5 % (0.0-8.0) 13.0 % (0.0-8.0) Neutrophils # (Auto) 8.7 TH/MM3 (1.8-7.7) 8.1 TH/MM3 (1.8-7.7) Monocytes # (Auto) 1.4 TH/MM3 (0-0.9) 1.5 TH/MM3 (0-0.9) Random Glucose 109 MG/DL (74-106) Albumin 3.1 GM/DL (3.4-5.0) Calcium Level 8.4 MG/DL (8.5-10.1) 8.3 MG/DL (8.5-10.1) Sodium Level 134 MEQ/L (136-145) 135 MEQ/L (136-145) Estimat Glomerular Filtration Rate 81 ML/MIN (>89) Troponin I 0.49 NG/ML (0.02-0.05) 0.32 NG/ML (0.02-0.05) 0.21 NG/ML (0.02-0.05) B-Type Natriuretic Peptide 184 PG/ML (0-100) Total Creatine Kinase 21 U/L (26-192) 16 U/L (26-192) Red Blood Count 3.89 MIL/MM3 (4.00-5.30) Hemoglobin 11.5 GM/DL (11.6-15.3) Imaging Last Impressions Chest X-Ray 07/06/17 [id number] Signed Impressions: Service Date/Time: Thursday, July 06, 2017 17:59 - CONCLUSION: No acute disease. Hugo Hubbard Jr., MD Hospital Course This 82-year-old female with known history of atrial fibrillation, hypertension, hyperlipidemia, history of congestive heart failure who originally presented to hospital because of dyspnea and chest pain. Patient had recent cardiac ablation by Dr. Nichole on 07/01/17. Patient states that since then she had been experiencing back pain and that she came to emergency department reporting that she is having chest pain right into the center in her chest was feeling tight. There is no radiation. There is no chest discomfort on exertion. She denied any nausea or vomiting. Laboratory studies were performed which did indicate elevated troponin. Patient was recommended admission for further evaluation management. Environmental Program Manager was consulted for recommendations. During the patient's stay in the hospital she started having atrial fibrillation again. Patient was given Cardizem 15 mg IV 1 with control of her heart rate. Cardiology evaluated the patient and recommended starting of digoxin for continued rate control. Patient was continued on Toprol and amiodarone down. She is anticoagulated with Eliquis. After review of the [employer] consultation and was indicated that her chest discomfort was significantly atypical. Her troponin elevation likely due to recent cardiac ablation. Patient is asymptomatic at this time. No longer experiencing any chest pain, shortness of breath. Case was discussed with [employer] and it was indicated that the patient can be discharged with outpatient follow-up. Environmental Program Manager recommending continuation of digoxin 0.125 mg daily. Pt Condition on Discharge: Stable Discharge Disposition: Discharge Home Discharge Time: > 30 minutes Discharge Instructions DIET: Follow Instructions for: Heart Healthy Diet Activities you can perform: Regular-No Restrictions Follow up Referrals: Cardiology - 1 Week with Ashish [facility] MD PCP Follow-up - 1 Week New Medications: Digoxin (Digoxin) 0.125 Mg Tab 0.125 MG PO DAILY for Regulate Heart Beat, #30 TAB 0 Refills Continued Medications: Amiodarone (Amiodarone) 200 Mg Tab 200 MG PO DAILY for Regulate Heart Beat, #30 TAB 0 Refills Apixaban (Eliquis) 5 Mg Tab 5 MG PO BID for Blood Clot Prevention, #60 TAB 0 Refills Betamethasone Valerate Topical (Betamethasone Valerate Topical) 0.1% Cream 1 APPLIC TOPICAL BID for Dermatoses, #15 GM 0 Refills Clonazepam (Klonopin) 0.5 Mg Tab 0.5 MG PO HS, #60 TAB 0 Refills Furosemide (Furosemide) 20 Mg Tab 40 MG PO DAILY, #30 TAB 0 Refills Levalbuterol 15 GM Inh (Xopenex Hfa 15 GM Inh) 45 Mcg/Act Aer 45 MCG INH Q4HR, #1 INHALER 0 Refills Shake well before using. (1 puff = 45 mcg) Metoprolol Succinate ER 24 HR (Metoprolol Succinate ER 24 HR) 50 Mg Tab 50 MG PO DAILY, #30 TAB 0 Refills Niacin (Niacin) 500 Mg Tab 500 MG PO DAILY for Cholesterol Management, #30 TAB 0 Refills Potassium Chloride ER (K-Tab) 10 Meq Tab 20 MEQ PO DAILY for Electrolyte Replacement, #30 TAB 0 Refills Psyllium Powder (Metamucil Smooth Texture) 28.3 % Pow 1 SCOOP PO BID PRN for CONSTIPATION, CONTAINER 0 Refills 1 rounded TEASPOON in 8 oz of liquid at the first sign of irregularity. Miguel Chin Jul 08, 2017 09:29
== END 2017-07-08 11:02 | disposition home or self-care (01) | DRG 313 ==
LOC: PHED 17:13 → PHEDA 19:30 → PH3B 22:33 → OBSVTOIN 07-07 16:01 → PHICU 07-07 18:05
PROVIDERS: ADMIT Hospitalist; ATTEND Hospitalist
DX: R07.89 Other chest pain (principal); I48.0 Paroxysmal atrial fibrillation; I11.0 Hypertensive heart disease with heart failure; I50.9 Heart failure, unspecified; R74.8 Abnormal levels of other serum enzymes; E78.00 Pure hypercholesterolemia, unspecified; Z79.01 Long term (current) use of anticoagulants; Z85.820 Personal history of malignant melanoma of skin; Z87.891 Personal history of nicotine dependence; Z88.5 Allergy status to narcotic agent; Z88.6 Allergy status to analgesic agent; Z96.642 Presence of left artificial hip joint
CPT/HCPCS: 71045; 80048; 80053; 82550; 83880; 84484; 85025; 85610; 85730; 93005; 99285; G0378; G8987-GP; G8988-GP; J1160

== ENCOUNTER 2017-07-24 13:59 | Day surgery (SDC) | payer MEDICARE ==
[~2017-07-24 13:59] MED LIST changes: +DIGO0.12 PO; -METO1TAB43 PO; +METO1TAB9 PO
[2017-07-24] MEDS ORDERED: PROPOFOL 200 MG/20 ML AMP ONE (16:16)
--- NOTE | 2017-07-25 15:13 | EKG ---
Date Performed: 07/24/2017 Time Performed: 14:49:12 PTAGE: 82 years EKG: Atrial fibrillation with rapid ventricular response Low limb lead voltage Compared to previ ous tracing, the atrial fibrillation is new. Clinical correlation recommended. Borderline ECG PREVIOUS TRACING : 07/07/2017 04.59 DOCTOR: Porter Hobson Interpretating Date/Time 07/25/2017 15:13:17
--- NOTE | 2017-07-25 15:14 | EKG ---
Date Performed: 07/24/2017 Time Performed: 17:00:26 PTAGE: 82 years EKG: Sinus rhythm . Normal ECG Compared to PREVIOUS TRACING , rhythm has changed from atrial fibrillation to sinus rhythm. QRS volta ge remains borderline low in limb leads. PREVIOUS TRACIN07/24/2017 14.49 DOCTOR: Porter Hobson Interpretating Date/Time 07/25/2017 15:14:01
--- NOTE | 2017-08-12 10:32 | MA ---
cc: SOCOROR MERCEDES HANSCY M.D. DATE 07/24/2017 PROCEDURE Cardioversion. INDICATION FOR PROCEDURE Mrs. Ybarra is an 82-year-old female with atrial fibrillation, symptomatic on anticoagulation, who will undergo cardioversion. The risks, the nature and the benefit of the procedure were clearly stated to her. The risks include cardiac arrest, need for intubation, and even . She understood and agreed to proceed. DETAILS OF PROCEDURE After written informed consent was obtained, the patient was brought to the DOC unit where she was evaluated by the anesthesiologist. Once sedation was verified, anterolateral pads were placed. Subsequently a [address] biphasic was delivered that converted the patient into sinus rhythm. No incident report. The patient recuperate from anesthesia. CONCLUSIONS Successful cardioversion. COMMENT/RECOMMENDATION The patient is going to be observed and will be discharged home later today. Yung Nichole MD HS/BT /9:44 AM /10:20 AM
== END 2017-07-24 18:00 | disposition home or self-care (01) ==
LOC: HDOC 13:59 → HDIC 14:00 → HDOC 18:00
PROVIDERS: ATTEND Internal Medicine Interventional Cardiology
DX: I48.91 Unspecified atrial fibrillation (principal); Z79.01 Long term (current) use of anticoagulants
CPT/HCPCS: 92960; 93005

== ENCOUNTER → 2017-08-04 | Outpatient (CLI) | payer MEDICARE ==
[2017-08-04 16:52] LABS: AUTOMATED NEUTROPHIL # 4.5 TH/MM3 (1.8-7.7); BASOPHIL % 0.5 % (0.0-2.0); EOSINOPHIL # 0.1 TH/MM3 (0-0.4); HEMATOCRIT 37.5 % (35.0-46.0); HEMOGLOBIN 12.5 GM/DL (11.6-15.3); LYMPH % 22.9 % (9.0-44.0); LYMPHOCYTE # 1.6 TH/MM3 (1.0-4.8); MEAN CELL VOLUME 90.9 FL (80.0-100.0); MEAN CORPUSCULAR HEMOGLOBIN 30.3 PG (27.0-34.0); MEAN CORPUSCULAR HGB CONC 33.3 % (32.0-36.0); MEAN PLATELET VOLUME 7.9 FL (7.0-11.0); MONO % 12.1 % (0.0-8.0); MONOCYTE # 0.9 TH/MM3 (0-0.9); NEUT % 63.5 % (16.0-70.0); PLATELET COUNT 303 TH/MM3 (150-450); RED BLOOD COUNT 4.13 MIL/MM3 (4.00-5.30); RED CELL DISTRIBUTION WIDTH 15.5 % (11.6-17.2); WHITE BLOOD COUNT 7.1 TH/MM3 (4.0-11.0)
[2017-08-04 17:15] LABS: THYROXINE (T4) 9.6 MCG/DL (4.8-13.9)
== END ==
LOC: PLAB 12:20
PROVIDERS: ATTEND Family Medicine
DX: R53.83 Other fatigue (principal)
CPT/HCPCS: 36415; 84436; 84443; 85025

== ENCOUNTER → 2017-12-08 | Outpatient (CLI) | payer MEDICARE ==
[~2017-12-08] MED LIST changes: +AMLO5TAB2 PO; +CALC1TAB87 PO; -DIGO0.12 PO; +LORA-650 PO; +MAPA500T13 PO; +NO ITAB PO; +VITA10002 PO
[2017-12-08 13:56] LABS: AUTOMATED NEUTROPHIL # 11.6 TH/MM3 (1.8-7.7); BASOPHIL % 0.1 % (0.0-2.0); HEMATOCRIT 38.6 % (35.0-46.0); HEMOGLOBIN 12.6 GM/DL (11.6-15.3); LYMPH % 6.4 % (9.0-44.0); LYMPHOCYTE # 0.8 TH/MM3 (1.0-4.8); MEAN CELL VOLUME 94.8 FL (80.0-100.0); MEAN CORPUSCULAR HEMOGLOBIN 30.9 PG (27.0-34.0); MEAN CORPUSCULAR HGB CONC 32.6 % (32.0-36.0); MEAN PLATELET VOLUME 7.9 FL (7.0-11.0); MONO % 3.4 % (0.0-8.0); MONOCYTE # 0.4 TH/MM3 (0-0.9); NEUT % 90.1 % (16.0-70.0); PLATELET COUNT 319 TH/MM3 (150-450); RED BLOOD COUNT 4.07 MIL/MM3 (4.00-5.30); RED CELL DISTRIBUTION WIDTH 15.1 % (11.6-17.2); WHITE BLOOD COUNT 12.9 TH/MM3 (4.0-11.0)
[2017-12-08 14:04] LABS: ALBUMIN 3.6 GM/DL (3.4-5.0); AST (GOT) 20 U/L (15-37); BLOOD UREA NITROGEN 13 MG/DL (7-18); CHLORIDE 104 MEQ/L (98-107); CHOLESTEROL 231 MG/DL (120-200); CREATININE 0.82 MG/DL (0.50-1.00); GLOMERULAR FILTRATION RATE 66 ML/MIN (>89); GLUCOSE,FASTING 107 MG/DL (74-99); SODIUM (NA) 140 MEQ/L (136-145)
[2017-12-08 14:15] LABS: ALKALINE PHOSPHATASE 88 U/L (45-117); ALT (GPT) 29 U/L (10-53); CHOLESTEROL/ HDL RATIO 3.08 RATIO; HDL CHOLESTEROL 74.8 MG/DL (40.0-60.0); LDL CHOLESTEROL 142 MG/DL (0-99); TOTAL BILIRUBIN ADULT 0.4 MG/DL (0.2-1.0); TOTAL PROTEIN 7.1 GM/DL (6.4-8.2); TRIGLYCERIDES 72 MG/DL (42-150)
== END ==
LOC: PLAB 09:01
PROVIDERS: ATTEND Family Medicine
DX: I10 Essential (primary) hypertension (principal); E78.2 Mixed hyperlipidemia; I48.91 Unspecified atrial fibrillation
CPT/HCPCS: 36415; 80053; 80061; 84443; 85025